=== PATIENT | female | born 1945 | race Caucasian/White ===

== ENCOUNTER 2016-12-03 13:15 | Emergency (ER) | payer MEDICARE, BC ==
[2016-12-03] MEDS ORDERED: Sodium Chloride 0.9% 1,000 ML IV ONE (13:30)
[2016-12-03] MEDS ORDERED: Aspirin 81 MG Tab.Chew PO ONE (13:51)
[2016-12-03 13:58] LABS: CHLORIDE,CL 94 mmol/L (101-111); SODIUM,NA 131 mmol/L (135-145)
--- NOTE | 2016-12-03 14:06 | EDM.PDOC ---
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 Patient does have a history of a thyroid disorder. She states over the past 3 weeks that she thought her thyroid may be a little bit out of "whack" although the symptoms she has been having over the past 3 weeks are not consistent to her hypothyroidism in the past. She had some blood work done and was found to be quite hyperglycemic in the 400s and was started on glyburide. He did not see her primary care provider they just started the medication after her labs were drawn. Over the past 3 weeks she has had epigastric pain pressure that is constant. This pain gets worse with physical activity nothing makes it better she does complain of increasing shortness of breath weakness malaise and fatigue. She just does not have the energy that she typically has in the past. She is more short of breath than she typically is. He denies any weakness dizziness lightheadedness. She has been diaphoretic intermittently over the past couple weeks as well. She denies any fever or chills. She denies any cough or congestion. She denies any abdominal pain other than her epigastric pain. She does complain of some nausea without vomiting. No hematuria dysuria or urinary frequency. No flank pain. Generalized Pain Score (Numeric/FACES): 2 - Related Data Allergies Allergy/AdvReac Type Severity Reaction Status Date / Time codeine Allergy Headache Verified 12/03/16 13:31 morphine Allergy Headache Verified 12/03/16 13:31 omeprazole Allergy Nausea Verified 12/03/16 13:31 phenobarbital Allergy Swelling Verified 12/03/16 13:31 Home Meds: Home Meds DULoxetine [Cymbalta] 60 mg PO DAILY 07/27/15 [History] Hydrocodone/Acetaminophen [Hydrocodone-Acetaminophen 5-325] 1 tab PO TID PRN [History] Levothyroxine Sodium [Synthroid] 1 tab PO DAILY 07/27/15 [History] Nortriptyline HCl [Nortriptyline HCl] 25 mg PO BEDTIME 07/27/15 [History] Probenecid [Probenecid] 500 mg PO BID 07/27/15 [History] Simvastatin [Simvastatin] 20 mg PO DAILY 07/27/15 [History] Valsartan [Diovan] 160 mg PO DAILY 07/27/15 [History] levETIRAcetam [Levetiracetam] 500 mg PO BID 07/27/15 [History] Lutein/Minerals/Vit A,C & E [Ocuvite] 1 tab PO DAILY 12/03/16 [History] glipiZIDE [Glipizide ER] 5 mg PO BID 12/03/16 [History] ED ROS GENERAL - Review of Systems Review Of Systems: ROS reveals no pertinent complaints other than HPI. ED EXAM, GENERAL - Physical Exam Exam: See Below Exam Limited By: No Limitations General Appearance: Alert, WD/WN, No Apparent Distress Eye Exam: Bilateral Eye: Normal Inspection Ears: Normal External Exam Nose: Normal Inspection, Normal Mucosa Throat/Mouth: Normal Inspection, Normal Lips, Normal Oropharynx Head: Atraumatic, Normocephalic Neck: Normal Inspection, Supple, Non-Tender, Full Range of Motion Respiratory/Chest: No Respiratory Distress, Lungs Clear, Normal Breath Sounds, No Accessory Muscle Use, Chest Non-Tender Cardiovascular: Normal Peripheral Pulses, Regular Rate, Rhythm, No Gallop, No JVD, No Murmur, No Rub Peripheral Pulses: 2+: Carotid (L), Carotid (R), Radial (L), Radial (R), Posterior Tibial (L), Posterior Tibial (R), Dorsalis Pedis (L), Dorsalis Pedis ( R) GI/Abdominal: Normal Bowel Sounds, Soft, Non-Tender, No Organomegaly, No Abnormal Bruit, No Mass (Female) Exam: Deferred Rectal (Female) Exam: Deferred Back Exam: Normal Inspection, Full Range of Motion. No: CVA Tenderness (L), CVA Tenderness (R) Extremities: Normal Inspection, Normal Range of Motion, Non-Tender, No Pedal Edema, Normal Capillary Refill. No: Mohamud's Sign, Leg Pain Neurological: Alert, Oriented, CN II-XII Intact, Normal Cognition Psychiatric: Normal Affect Skin Exam: No Rash, Cool, Diaphoretic, Pallor Lymphatic: No Adenopathy EKG INTERPRETATION EKG Date: 12/03/16 Time: 13:35 Rhythm: NSR Rate (Beats/Min): 84 [place]: Normal P-Wave: Present QRS: LBBB (Which is chronic for her. Although the morphology of the lateral QRS complex is quite different than her previous EKG from 2016.) ST-T: Normal QT: Normal Comparison: Change From Previous EKG EKG Interpretation Comments: Normal sinus rhythm without ST elevation or depression. Chronic left bundle branch block although has quite a bit a change of morphology laterally. Course - Vital Signs Last Recorded V/S: Last Vital Signs Temp 36.7 C 12/03/16 13:30 Pulse 88 12/03/16 13:30 Resp 20 12/03/16 13:30 BP 111/52 L 12/03/16 15:01 Pulse Ox 96 12/03/16 13:30 - Orders/Labs/Meds Orders: Active Orders 24 hr Category Date Time Status EKG 12 Lead [EKG Documentation Completion] [RC] URGENT Care 12/03/16 13:27 Active Labs: Laboratory Tests 12/03/16 12/03/16 12/03/16 Range/Units 13:25 13:25 13:25 WBC 5.6 (5.0-10.0) 10^3/uL RBC 4.14 L (4.2-5.4) 10^6/uL Hgb 14.6 (12.0-16.0) g/dL Hct 41.3 (37.0-47.0) % MCV 99.8 (80-100) fL MCH 35.3 H (27.0-34.0) pg MCHC 35.4 H (33.0-35.0) g/dL Plt Count 186 (150-450) 10^3/uL Neut % (Auto) 57.5 (42.2-75.2) % Lymph % (Auto) 27.4 (20.5-50.1) % [place] % (Auto) 12.6 H (2-8) % Eos % (Auto) 2.1 (1.0-3.0) % Baso % (Auto) 0.4 (0.0-1.0) % Sodium 131 L (135-145) mmol/L Potassium 4.5 (3.6-5.0) mmol/L Chloride 94 L (101-111) mmol/L Carbon Dioxide 26.0 (21.0-31.0) mmol/L Anion Gap 15.5 BUN 18 (7-18) mg/dL Creatinine 1.1 (0.6-1.3) mg/dL Est Cr Clr Drug Dosing TNP Estimated GFR (MDRD) 49 BUN/Creatinine Ratio 16.36 Glucose 467 H* (74-105) mg/dL POC Glucose (70-105) mg/dl Calcium 9.7 (8.4-10.2) mg/dl Total Bilirubin 0.8 (0.2-1.0) mg/dL AST 45 H (10-42) IU/L ALT 59 (10-60) IU/L Alkaline Phosphatase 49 (42-121) IU/L Creatine Kinase 132 (26-174) IU/L Creatine Kinase Index 1.6 (0-2.4) % CK-MB (CK-2) 2.10 (0.4-4.7) ng/mL Troponin I < 0.02 (0.00-0.02) ng/ml Total Protein 7.4 (6.7-8.2) g/dl Albumin 3.8 (3.2-5.5) g/dl Globulin 3.6 Albumin/Globulin Ratio 1.06 Urine Color (YELLOW) Urine Appearance (CLEAR) Urine pH (5.0-9.0) Ur Specific [place] (1.005-1.030) Urine Protein (NEGATIVE) Urine Glucose (UA) (NEGATIVE) Urine Ketones (NEGATIVE) Urine Occult Blood (NEGATIVE) Urine Nitrite (NEGATIVE) Urine Bilirubin (NEGATIVE) Urine Urobilinogen (0.2-1.0) mg/dL Ur Leukocyte Esterase (NEGATIVE) Urine RBC /HPF Urine WBC (0-5/HPF) /HPF Ur Epithelial Cells /HPF Urine Bacteria (0-FEW/HPF) /HPF 12/03/16 12/03/16 Range/Units 13:26 14:35 WBC (5.0-10.0) 10^3/uL RBC (4.2-5.4) 10^6/uL Hgb (12.0-16.0) g/dL Hct (37.0-47.0) % MCV (80-100) fL MCH (27.0-34.0) pg MCHC (33.0-35.0) g/dL Plt Count (150-450) 10^3/uL Neut % (Auto) (42.2-75.2) % Lymph % (Auto) (20.5-50.1) % [place] % (Auto) (2-8) % Eos % (Auto) (1.0-3.0) % Baso % (Auto) (0.0-1.0) % Sodium (135-145) mmol/L Potassium (3.6-5.0) mmol/L Chloride (101-111) mmol/L Carbon Dioxide (21.0-31.0) mmol/L Anion Gap BUN (7-18) mg/dL Creatinine (0.6-1.3) mg/dL Est Cr Clr Drug Dosing Estimated GFR (MDRD) BUN/Creatinine Ratio Glucose (74-105) mg/dL POC Glucose 433 H* (70-105) mg/dl Calcium (8.4-10.2) mg/dl Total Bilirubin (0.2-1.0) mg/dL AST (10-42) IU/L ALT (10-60) IU/L Alkaline Phosphatase (42-121) IU/L Creatine Kinase (26-174) IU/L Creatine Kinase Index (0-2.4) % CK-MB (CK-2) (0.4-4.7) ng/mL Troponin I (0.00-0.02) ng/ml Total Protein (6.7-8.2) g/dl Albumin (3.2-5.5) g/dl Globulin Albumin/Globulin Ratio Urine Color Yellow (YELLOW) Urine Appearance Slightly cloudy (CLEAR) Urine pH 6.0 (5.0-9.0) Ur Specific [place] <= 1.005 (1.005-1.030) Urine Protein Negative (NEGATIVE) Urine Glucose (UA) 500 H (NEGATIVE) Urine Ketones Negative (NEGATIVE) Urine Occult Blood Negative (NEGATIVE) Urine Nitrite Negative (NEGATIVE) Urine Bilirubin Negative (NEGATIVE) Urine Urobilinogen 0.2 (0.2-1.0) mg/dL Ur Leukocyte Esterase Small H (NEGATIVE) Urine RBC 0-5 /HPF Urine WBC 5-10 H (0-5/HPF) /HPF Ur Epithelial Cells Moderate H /HPF Urine Bacteria Few (0-FEW/HPF) /HPF Meds: Medications Discontinued Medications Generic Name Dose Route Start Last Admin Trade Name Freq PRN Reason Stop Dose Admin Aspirin 324 mg 12/03/16 13:51 12/03/16 14:45 Aspirin PO 12/03/16 13:52 324 mg ONETIME ONE Administration Sodium Chloride 1,000 mls @ 999 mls/hr 12/03/16 13:30 12/03/16 13:30 Normal Saline IV 12/03/16 14:30 999 mls/hr .BOLUS ONE Administration Nitroglycerin 0.4 mg 12/03/16 14:44 12/03/16 14:47 Nitrostat SL 12/03/16 14:45 0.4 mg ONETIME ONE Administration Nitroglycerin 0.4 mg 12/03/16 14:58 12/03/16 15:01 Nitrostat SL 12/03/16 14:59 0.4 mg ONETIME ONE Administration - Radiology Interpretation Free Text/Narrative:: Chest x-ray per radiology. No evidence for acute abnormality in the chest. Postsurgical changes as noted. Cervical fusion. - Re-Assessments/Exams Free Text/Narrative Re-Assessment/Exam: 12/03/16 15:42 The patient's blood sugar is quite elevated although there is no presence of ketosis in her urine. She is more concerned about her blood pressure although I am more concerned of her 3 weeks of malaise fatigue shortness of breath epigastric pain chest pressure. Although her troponin is normal as well as her CK-MB I still have concerns for cardiac disease. She was given aspirin upon arrival. Chest x-ray is unremarkable. After 2 sublingual nitros the patient's epigastric chest pain was completely resolved. Her skin is pink warm and dry. She is without complaints at this time. She denies any shortness of breath epigastric pain or chest pain following to nitroglycerin administration. I have concerns for unstable angina at this time. I did talk with out hospitalist who is addiction treatment counselor DR. Gutierrez primarily because he is her primary care provider. He feels that this patient is best served to go to a tertiary care center with cardiology in angiograph ability. I did discuss this with the patient and she is agreeable. Departure - Departure Time of Disposition: 16:00 Disposition: DC/Tfer to [facility] 02 Clinical Impression: Angina at rest, Hyperglycemia without ketosis - Discharge Information Forms: ED Department Discharge ED Communication - Discussed Case With (1) Discussed Case With (1): Admitting Provider (DR. Mejia at [facility] in [place]. HPI ER COURSE and findings and concerns for Angina unstable was relayed to him verbally over the phone. He accepted the patient in transfer and had no new orders.) - My Orders Last 24 Hours: My Active Orders 12/03/16 13:27 EKG 12 Lead [EKG Documentation Completion] [RC] URGENT - Assessment/Plan Last 24 Hours: My Active Orders 12/03/16 13:27 EKG 12 Lead [EKG Documentation Completion] [RC] URGENT Assessment:: CP/Angina resolved after nitro, negative Enzymes although some subtle changes in morphology of EKG. No ST elevation or depression. Hyperglycemia without evidence of ketosis. Plan: Ground ambulance to [facility] under the care of Dr. Mejia for further care and evaluation for CP angina symptoms.
[2016-12-03] MEDS ORDERED: Nitroglycerin 0.4 MG Tab.SL SL ONE ×2 (14:44→14:58)
[2016-12-03 15:01] VITALS: BP 111/52
--- NOTE | 2017-01-09 09:32 | EKG ---
12/03/2016 - RUDY BORGES - EKG shows sinus rhythm with a rate of 84, normal TX interval, normal axis. There is left bundle-branch block. [facility] /[id number]
== END 2016-12-03 16:32 ==
LOC: DL.ED 13:15
DX: R73.9 Hyperglycemia, unspecified (principal); I20.9 Angina pectoris, unspecified; Z88.5 Allergy status to narcotic agent; Z88.8 Allergy status to other drugs, medicaments and biological substances; Z79.899 Other long term (current) drug therapy
CPT/HCPCS: 36415; 71020; 80053; 81001; 82550; 82553; 82962; 84484; 85025; 93005; 93010; 96360; 99284; 99285; A9270; J7030

== ENCOUNTER 2020-02-28 15:19 | Inpatient (IN) | payer MEDICARE, BC ==
[~2020-02-28 15:19] MED LIST: Ondansetron 4 MG/2 ML SDV IV ONE; Sodium Chloride 0.9% 1,000 ML IV ONE; fentaNYL 100 MCG/2 ML SDV IVPUSH ONE
--- NOTE | 2020-02-28 15:27 | EDM.PDOC ---
ED HPI GENERAL MEDICAL PROBLEM - General Chief Complaint: Abdominal Pain Stated Complaint: ambulance Time Seen by Provider: 02/28/20 15:19 Source of Information: Reports: Patient, EMS, EMS Notes Reviewed, RN, RN Notes Reviewed History Limitations: Reports: No Limitations - History of Present Illness INITIAL COMMENTS - FREE TEXT/NARRATIVE: Patient presents to ER per [facility] with complaint of left flank pain, left lower quadrant pain, nausea and vomiting. Patient states this began about 230 this morning, progressively getting worse. Patient admits to having some difficulties with urination today. Patient states her last bowel movement was 3 days ago. Denies fever chills. Denies chest pains or shortness of breath, although deep inspiration does cause pain on the left side. Onset: Today Left Abdomen Pain Score (Numeric/FACES): 7 - Related Data Allergies Allergy/AdvReac Type Severity Reaction Status Date / Time codeine Allergy Headache Verified 02/28/20 15:27 morphine Allergy Headache Verified 02/28/20 15:27 omeprazole Allergy Nausea Verified 02/28/20 15:27 phenobarbital Allergy Swelling Verified 02/28/20 15:27 Home Meds: Home Meds DULoxetine [Cymbalta] 60 mg PO DAILY 07/27/15 [History] Hydrocodone/Acetaminophen [Hydrocodone-Acetaminophen 5-325] 1 tab PO TID PRN 07/27/15 [History] Nortriptyline HCl 25 mg PO BEDTIME 07/27/15 [History] Simvastatin 20 mg PO BEDTIME 07/27/15 [History] levETIRAcetam [Levetiracetam] 500 mg PO BID 07/27/15 [History] Lutein/Minerals/Vit A,C & E [Ocuvite] 2 tab PO DAILY 12/03/16 [History] Aspirin [Adult Low Dose Aspirin EC] 325 mg PO DAILY 12/19/16 [History] Metoprolol Tartrate 25 mg PO BID 12/19/16 [History] Nitroglycerin [Nitrostat] 0.4 mg SL .Q5MIN 12/19/16 [History] Levothyroxine [Synthroid] 100 mcg PO DAILY 04/16/18 [History] glipiZIDE [Glucotrol] 10 mg PO BID 04/16/18 [History] Acetaminophen [Tylenol] 650 mg PO Q4H PRN tablet 04/18/18 [Rx] Insulin Glarg,Human.Rec.Analog [Lantus] 48 units SQ BEDTIME 02/28/20 [History] Past Medical History HEENT History: Reports: Hard of Hearing, Impaired Vision, Macular Degeneration Other HEENT History: hard of hearing in the left ear, wears glasses Cardiovascular History: Reports: High Cholesterol, Hypertension, [place] Other Cardiovascular History: was told had a heart attack before, not sure when Respiratory History: Reports: None Gastrointestinal History: Reports: None Genitourinary History: Reports: None 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 Musculoskeletal History: Reports: Back Pain, Chronic, Fibromyalgia, Gout, Osteoarthritis, Other (See Below) Other Musculoskeletal History: Lumbago, degeneration of lumbar or lumbosacral intervertebral disc, cervicalgia, degeneration of cervical intervertebral Neurological History: Reports: Neuropathy, Peripheral, Seizure, Other (See Below) Other Neuro History: Epilepsy Psychiatric History: Reports: Depression Endocrine/Metabolic History: Reports: Diabetes, Type II, Hypothyroidism, Obesity/BMI 30+ Hematologic History: Reports: None Immunologic History: Reports: None Oncologic (Cancer) History: Reports: None Dermatologic History: Reports: None - Infectious Disease History Infectious Disease History: Reports: Chicken Pox, Measles, Mumps - Past Surgical History HEENT Surgical History: Reports: Cataract Surgery, Tonsillectomy GI Surgical History: Reports: Appendectomy, Colonoscopy Female Surgical History: Reports: Breast Biopsy Musculoskeletal Surgical History: Reports: Other (See Below) Other Musculoskeletal Surgeries/Procedures:: right ankle surgery with postsurgical ankle wound, spinal cord stimulator Social & Family History - Family History Family Medical History: Noncontributory - Caffeine Use Caffeine Use: Reports: None - Living Situation & Occupation Living situation: Reports: , with Spouse Occupation: Retired ED ROS GENERAL - Review of Systems Review Of Systems: Comprehensive ROS is negative, except as noted in HPI. ED EXAM, GI/ABD - Physical Exam Exam: See Below Exam Limited By: No Limitations General Appearance: Alert, WD/WN, Moderate Distress Eyes: Right: Erythema (ruptured capillary), Left: Normal Appearance, Bilateral: EOMI Ears: Normal External Exam, Hearing Grossly Normal Nose: Normal Inspection Throat/Mouth: Normal Inspection, Normal Voice, No Airway Compromise Head: Atraumatic, Normocephalic Neck: Normal Inspection, Supple, Non-Tender, Full Range of Motion Respiratory/Chest: No Respiratory Distress, No Accessory Muscle Use, Chest Non- Tender, Decreased Breath Sounds Cardiovascular: Normal Peripheral Pulses, Regular Rate, Rhythm, No Edema, No Gallop, No JVD, No Murmur, No Rub GI/Abdominal Exam: Soft, No Organomegaly, No Distention, No Abnormal Bruit, No Mass, Pelvis Stable, Tender (Left lower quadrant, left upper quad quadrant, left flank), Abnormal Bowel Sounds (Hypoactive) (Female) Exam: Deferred Rectal (Female) Exam: Deferred Back Exam: Normal Inspection, CVA Tenderness (L), Decreased Range of Motion Extremities: Normal Inspection, Normal Range of Motion, Non-Tender, No Pedal Edema, Normal Capillary Refill Neurological: Alert, Oriented, CN II-XII Intact, Normal Cognition, Normal Reflexes, No Motor/Sensory Deficits Psychiatric: Anxious Skin Exam: Warm, Dry, Intact, Normal Color, No Rash Lymphatic: No Adenopathy Course - Vital Signs Last Recorded V/S: Last Vital Signs Temp 97.1 F 02/28/20 15:23 Pulse 88 02/28/20 15:23 Resp 20 02/28/20 15:23 BP 177/91 H 02/28/20 15:23 Pulse Ox 94 L 02/28/20 15:23 - Orders/Labs/Meds Orders: Active Orders 24 hr Category Date Time Status Admission Diagnosis [ADT] Stat ADT 02/28/20 18:14 Ordered Patient Status [ADT] Routine ADT 02/28/20 18:14 Active CULTURE BLOOD [BC] Stat Lab 02/28/20 15:05 Results CULTURE BLOOD [BC] Stat Lab 02/28/20 15:07 Results CULTURE URINE [RM] Urgent Lab 02/28/20 16:58 Received REFLEX LACTIC ACID YES OR NO [CHEM] Routine Lab 02/28/20 15:46 Received Sodium Chloride 0.9% [Normal Saline] 1,000 ml Med 02/28/20 15:10 Active IV .BOLUS Blood Culture x2 Reflex Set [OM.PC] Stat Oth 02/28/20 15:10 Ordered Medication Orders Sodium Chloride (Normal Saline) 1,000 mls @ 250 mls/hr IV .BOLUS ONE Stop: 02/28/20 19:09 Last Admin: 02/28/20 15:16 Dose: 250 mls/hr Documented by: PREM Labs: Laboratory Tests 02/28/20 02/28/20 02/28/20 Range/Units 15:05 15:07 15:07 WBC 10.9 H (5.0-10.0) 10^3/uL RBC 4.76 (4.2-5.4) 10^6/uL Hgb 16.7 H D (12.0-16.0) g/dL Hct 48.7 H (37.0-47.0) % MCV 102.3 H (80-100) fL MCH 35.1 H (27.0-34.0) pg MCHC 34.3 (33.0-35.0) g/dL Plt Count 209 (150-450) 10^3/uL Neut % (Auto) 78.1 H (42.2-75.2) % Lymph % (Auto) 11.7 L (20.5-50.1) % [place] % (Auto) 9.8 H (2-8) % Eos % (Auto) 0.2 L (1.0-3.0) % Baso % (Auto) 0.2 (0.0-1.0) % PT (9.0-12.0) SEC INR (0.9-1.2) Sodium 137 (136-145) mmol/L Potassium 5.1 (3.5-5.1) mmol/L Chloride 100 (98-107) mmol/L Carbon Dioxide 31 (21-32) mmol/L Anion Gap 11.1 (7-13) mEq/L BUN 13 (7-18) mg/dL Creatinine 1.24 H (0.55-1.02) mg/dL Est Cr Clr Drug Dosing 38.39 mL/min Estimated GFR (MDRD) 43 BUN/Creatinine Ratio 10.5 (No establ ref range) Glucose 202 H (74-99) mg/dL Lactic Acid 2.6 H* (0.4-2.0) mmol/L Calcium 8.9 (8.5-10.1) mg/dL Total Bilirubin 0.8 (0.2-1.0) mg/dL AST 49 H (15-37) U/L ALT 60 H (14-59) U/L Alkaline Phosphatase 64 (46-116) U/L Troponin I < 0.017 (0.000-0.056) ng/mL Total Protein 7.7 (6.4-8.2) g/dL Albumin 3.5 (3.4-5.0) g/dL Globulin 4.2 Albumin/Globulin Ratio 0.8 Urine Color (YELLOW) Urine Appearance (CLEAR) Urine pH (5.0-9.0) Ur Specific [place] (1.005-1.030) Urine Protein (NEGATIVE) Urine Glucose (UA) (NEGATIVE) Urine Ketones (NEGATIVE) Urine Occult Blood (NEGATIVE) Urine Nitrite (NEGATIVE) Urine Bilirubin (NEGATIVE) Urine Urobilinogen (0.2-1.0) mg/dL Ur Leukocyte Esterase (NEGATIVE) Urine RBC /HPF Urine WBC (0-5/HPF) /HPF Ur Epithelial Cells (NOT SEEN) /HPF Amorphous Sediment (NOT SEEN) /HPF Urine Bacteria (0-FEW/HPF) /HPF Urine Mucus (NOT SEEN) /LPF 02/28/20 02/28/20 Range/Units 15:07 16:58 WBC (5.0-10.0) 10^3/uL RBC (4.2-5.4) 10^6/uL Hgb (12.0-16.0) g/dL Hct (37.0-47.0) % MCV (80-100) fL MCH (27.0-34.0) pg MCHC (33.0-35.0) g/dL Plt Count (150-450) 10^3/uL Neut % (Auto) (42.2-75.2) % Lymph % (Auto) (20.5-50.1) % [place] % (Auto) (2-8) % Eos % (Auto) (1.0-3.0) % Baso % (Auto) (0.0-1.0) % PT 10.6 (9.0-12.0) SEC INR 1.1 (0.9-1.2) Sodium (136-145) mmol/L Potassium (3.5-5.1) mmol/L Chloride (98-107) mmol/L Carbon Dioxide (21-32) mmol/L Anion Gap (7-13) mEq/L BUN (7-18) mg/dL Creatinine (0.55-1.02) mg/dL Est Cr Clr Drug Dosing mL/min Estimated GFR (MDRD) BUN/Creatinine Ratio (No establ ref range) Glucose (74-99) mg/dL Lactic Acid (0.4-2.0) mmol/L Calcium (8.5-10.1) mg/dL Total Bilirubin (0.2-1.0) mg/dL AST (15-37) U/L ALT (14-59) U/L Alkaline Phosphatase (46-116) U/L Troponin I (0.000-0.056) ng/mL Total Protein (6.4-8.2) g/dL Albumin (3.4-5.0) g/dL Globulin Albumin/Globulin Ratio Urine Color Dark yellow (YELLOW) Urine Appearance Turbid (CLEAR) Urine pH 5.5 (5.0-9.0) Ur Specific [place] 1.015 (1.005-1.030) Urine Protein 30 H (NEGATIVE) Urine Glucose (UA) Negative (NEGATIVE) Urine Ketones Negative (NEGATIVE) Urine Occult Blood Large H (NEGATIVE) Urine Nitrite Negative (NEGATIVE) Urine Bilirubin Negative (NEGATIVE) Urine Urobilinogen 1.0 (0.2-1.0) mg/dL Ur Leukocyte Esterase Negative (NEGATIVE) Urine RBC >100 H /HPF Urine WBC 0-5 (0-5/HPF) /HPF Ur Epithelial Cells Few (NOT SEEN) /HPF Amorphous Sediment Few (NOT SEEN) /HPF Urine Bacteria Rare (0-FEW/HPF) /HPF Urine Mucus Few H (NOT SEEN) /LPF Meds: Medications Generic Name Dose Route Start Last Admin Trade Name Freq PRN Reason Stop Dose Admin Sodium Chloride 1,000 mls @ 250 mls/hr 02/28/20 15:10 02/28/20 15:16 Normal Saline IV 02/28/20 19:09 250 mls/hr .BOLUS ONE Administration Discontinued Medications Generic Name Dose Route Start Last Admin Trade Name Freq PRN Reason Stop Dose Admin Fentanyl 50 mcg 02/28/20 15:10 02/28/20 15:17 Sublimaze IVPUSH 02/28/20 15:11 50 mcg ONETIME ONE Administration Fentanyl 50 mcg 02/28/20 16:49 02/28/20 16:58 Sublimaze IVPUSH 02/28/20 16:50 50 mcg ONETIME ONE Administration Iopamidol 100 ml 02/28/20 15:51 02/28/20 16:28 Isovue-300 (61%) IVPUSH 09/18/20 15:52 100 ml ONETIME ONE Administration Ondansetron HCl 4 mg 02/28/20 15:10 02/28/20 15:17 Zofran IV 02/28/20 15:11 4 mg ONETIME ONE Administration Ondansetron HCl 4 mg 02/28/20 17:01 02/28/20 17:05 Zofran IV 02/28/20 17:02 4 mg ONETIME ONE Administration - Re-Assessments/Exams Free Text/Narrative Re-Assessment/Exam: 02/28/20 18:50 Discussed patient case with Dr. Gutierrez who agreed to accept the patient for inpatient admission, with consultation to Urology. Departure - Departure Time of Disposition: 18:22 Disposition: Admitted As Inpatient 68 Condition: Fair Clinical Impression: Left flank pain Hematuria Qualifiers: Hematuria type: unspecified type Qualified Code(s): R31.9 - Hematuria, unspecified - Discharge Information *PRESCRIPTION DRUG MONITORING PROGRAM REVIEWED*: No *COPY OF PRESCRIPTION DRUG MONITORING REPORT IN PATIENT YEISON: No Forms: ED Department Discharge Sepsis Event Note (ED) - Evaluation Sepsis Screening Result: No Definite Risk - Focused Exam Vital Signs: Vital Signs Temp Pulse Resp BP Pulse Ox 02/28/20 15:23 97.1 F 88 20 177/91 H 94 L - My Orders Last 24 Hours: My Active Orders 02/28/20 15:05 CULTURE BLOOD [BC] Stat 02/28/20 15:07 CULTURE BLOOD [BC] Stat 02/28/20 15:10 Sodium Chloride 0.9% [Normal Saline] 1,000 ml IV .BOLUS Blood Culture x2 Reflex Set [OM.PC] Stat 02/28/20 15:46 REFLEX LACTIC ACID YES OR NO [CHEM] Routine 02/28/20 16:58 CULTURE URINE [RM] Urgent 02/28/20 18:14 Admission Diagnosis [ADT] Stat Patient Status [ADT] Routine - Assessment/Plan Last 24 Hours: My Active Orders 02/28/20 15:05 CULTURE BLOOD [BC] Stat 02/28/20 15:07 CULTURE BLOOD [BC] Stat 02/28/20 15:10 Sodium Chloride 0.9% [Normal Saline] 1,000 ml IV .BOLUS Blood Culture x2 Reflex Set [OM.PC] Stat 02/28/20 15:46 REFLEX LACTIC ACID YES OR NO [CHEM] Routine 02/28/20 16:58 CULTURE URINE [RM] Urgent 02/28/20 18:14 Admission Diagnosis [ADT] Stat Patient Status [ADT] Routine
[2020-02-28 15:43] LABS: ANION GAP 11.1 mEq/L (7-13); CHLORIDE,CL 100 mmol/L (98-107); SODIUM,NA 137 mmol/L (136-145)
[2020-02-28] MEDS: Iopamidol 612 MG/ML 100 ML Bottle IVPUSH ONE ×2 (16:04→16:28)
--- NOTE | 2020-02-28 16:45 | CT ---
EXAMINATION: Abdomen Pelvis w Cont SEX: Female AGE: 74 years Clinical history: 74-year-old hypertensive, diabetic female complaining of left flank pain. Previous "hysterectomy" and appendectomy. Scan technique: Volume acquisition of data from the abdomen and pelvis obtained after during intravenous infusion 100 cc nonionic Isovue contrast 3 cc/s via injector while patient was lying supine on the Siemens multislice scanner [place], [place]. All data archived in the PACS system for storage, reformatting axial/sagittal/coronal planes and study. Interpretation: 1. TENS unit entering the spinal canal at the T11-12 level (advancing in a cephalad fashion). 2. Several prominent CYSTS left adnexa presumably in the left ovary. Uterus and right ovary not identified. 3. Fatty liver and several areas of decreased attenuation in both the left and right lobes that warrants further evaluation i.e. recommend elective follow-up MRI exam this nonemergent finding. No ductal dilatation. 4. Gallbladder, stomach, spleen, pancreas and adrenal glands unremarkable. No ventral wall/inguinal hernia. 5. Small cortical cysts both kidneys (largest upper pole right measures 3.0 cm). No sign of nephrolithiasis or obstructive uropathy. Symmetrically distended normal appearing unenhanced urinary bladder. 6. No abdominal or pelvic mass lesion, inflammatory "dirty" peritoneal fat, diverticulitis, signs of mechanical bowel obstruction, ascites or free intraperitoneal air (normal terminal ileum). 7. Calcifications normal caliber aortoiliac vessels. Chronic lower lumbar L5-S1 disc disease. Osteopenia. CONCLUSION: Renal and left ovarian cysts. TENS unit. Usual signs of senescence. Lumbar disc disease. Note: Suspicious appearance (metastases? Hemangiomas?) of the generally fatty liver. (Elective MRI recommended). No sign of acute peritonitis.
[2020-02-28] MEDS ORDERED: fentaNYL 100 MCG/2 ML SDV IVPUSH ONE (16:49)
[2020-02-28] MEDS ORDERED: Ondansetron 4 MG/2 ML SDV IV ONE (17:01)
--- NOTE | 2020-02-28 17:40 | CR ---
PROCEDURE INFORMATION: Exam: XR Chest, 1 View Exam date and time: 02/28/2020 5:26 PM Age: 74 years old Clinical indication: Shortness of breath; Additional info: Left flank pain, vomiting, TECHNIQUE: Imaging protocol: XR of the chest Views: 1 view. COMPARISON: CR Chest 2V 12/03/2016 1:56 PM FINDINGS: Lungs: The lungs are normal. Pleural space: There are no pleural effusions present. Heart/Mediastinum: The heart is not enlarged. The pulmonary arteries are not enlarged. Bones/joints: Unremarkable IMPRESSION: No acute abnormality.
[2020-02-28] MEDS ORDERED: Acetaminophen 325 MG Tab PO PRN (19:01)
[2020-02-28] MEDS ORDERED: Ondansetron 4 MG Tab.DIS PO PRN (19:13)
[2020-02-28] MEDS ORDERED: Ondansetron 4 MG/2 ML SDV IVPUSH PRN (19:13)
[2020-02-28] MEDS ORDERED: Nitroglycerin 0.4 MG Tab.SL SL PRN (19:15)
[2020-02-28] MEDS ORDERED: Bisacodyl 10 MG Supp RECTAL ONE (19:18)
--- NOTE | 2020-02-28 19:33 | HP ---
CHIEF COMPLAINT: Left flank pain. HISTORY OF PRESENT ILLNESS: The patient is a 74-year-old lady who was admitted through the emergency room because the patient was complaining of left flank pain that started a couple of days ago and today it has worsened and now accompanied by nausea and vomiting. She denies any fever, any chills. Denies any dysuria, hematuria, diarrhea, cough, chest pain, shortness of breath, nor any other associated symptoms. She was brought in by ambulance to the emergency room, and in the emergency room, she was given couple of doses of fentanyl and Zofran, which slightly relieved the symptoms. She had a CAT scan of the abdomen and pelvis and this showed some renal and left ovarian cysts on TENS unit and usual signs of disk disease and suspicious appearance ?metastasis, ?hemangioma of the fatty liver. Otherwise, no other abnormality noted. There are no signs of diverticulitis or any signs of nephrolithiasis or obstructive uropathy. A chest x-ray was done, which basically came back unremarkable. Lab workup was remarkable for a lactic acid of 2.6 and urinalysis showing large occult blood with more than 100 per high-power field RBC. Otherwise, unremarkable. Because of the intractable left flank pain, the patient was then admitted for further evaluation and management. 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 SOCIAL HISTORY: The patient is . She is a nonsmoker, nonalcohol drinker. FAMILY HISTORY: Noncontributory. REVIEW OF SYSTEMS: As in HPI. The rest of the review of systems is negative. HOME MEDICATIONS: Cymbalta, hydrocodone, acetaminophen, nortriptyline, simvastatin, Keppra, Ocuvite, aspirin, metoprolol, sublingual nitro, levothyroxine, glipizide, Tylenol, and Lantus. ALLERGIES: Codeine, morphine, omeprazole, phenobarbital. PHYSICAL EXAMINATION: General: The patient is alert and oriented, in moderate distress. Vital Signs: Blood pressure is 177/91, pulse of 88, respirations of 20, temperature of 97.1, pulse oximeter is 94% on room air. SHEENT: Remarkable for subconjunctival hemorrhage on the right eye. There are pink palpebral conjunctivae. Sclerae anicteric. NECK: No JVD. No lymphadenopathy. HEART: Regular rate and rhythm. No gallops. No rubs. LUNGS: Equal bilaterally. No crackles. No wheezing. ABDOMEN: Obese, soft. There is [id number] direct tenderness on the left lumbar area. No rebound. Bowel sounds positive. There is CVA tenderness with percussion. EXTREMITIES: Has trace bilateral pedal edema. No calf tenderness. No signs of cellulitis. LABORATORY DATA: WBC is 10.9, hemoglobin is 16.7, hematocrit is 48.7, platelet is 209. ProTime 10.6 and INR of 1.1. Comp panel, creatinine is 1.24, glucose of 202. Lactic acid is 2.6. AST is 49, ALT of 60. ADMITTING DIAGNOSES: 1. Intractable left flank pain ?renal colic. 2. Hematuria. 3. Suspicious hypodensity on the liver ?metastasis versus hemangioma and this will be followed up with an MRI as an outpatient. 4. Fibromyalgia. 5. Type 2 diabetes mellitus. 6. History of seizures. 7. Hypothyroidism. TREATMENT PLAN: The patient is going to be admitted to acute care. She will be empirically started on IV fluids and she will be on a sliding scale insulin. She will be on deep vein thrombosis prophylaxis and she will be given pain medication for pain management. The rest of the management as necessary and the patient is a full code. [facility] /[id number]
[2020-02-28] MEDS: Levofloxacin/Dextrose 5%-Water 250 MG in Premix Bag 1 BAG IV SCH (19:52)
[2020-02-28] MEDS: Nortriptyline 25 MG Cap PO SCH (19:59)
[2020-02-28] MEDS: Metoprolol Tartrate 25 MG Tab PO SCH (19:59)
[2020-02-28] MEDS: levETIRAcetam 500 MG Tab PO SCH (19:59)
[2020-02-28] MEDS: Docusate Sodium 100 MG Cap PO SCH (19:59)
[2020-02-28] MEDS: Sodium Chloride 0.9% 1,000 ML IV SCH (21:35)
[2020-02-29] MEDS: Sodium Chloride 0.9% 1,000 ML IV SCH ×3 (05:36→22:31)
[2020-02-29 06:50] LABS: ANION GAP 9.3 mEq/L (7-13)
[2020-02-29] MEDS ORDERED: Aspirin 81 MG Tab.EC PO SCH (09:00)
--- NOTE | 2020-02-29 09:33 | PN ---
DATE: 02/29/2020 SUBJECTIVE: The patient this morning is feeling a little bit better with regard to her left flank pain and she denies any fever, chills, chest pain, shortness of breath, nor any other complaints. LABORATORY DATA: Lab workup this morning, CBC; WBC is 8.3, hemoglobin is 14.6, hematocrit is 42.4, platelet is 190. Chem-6; creatinine is 1.1, glucose is 109. The rest of the panel unremarkable. Followup lactic acid is 1.1. OBJECTIVE: Vital Signs: Blood pressure is 146/64, pulse of 91, respirations of 18, temperature of 97.8, saturation is 91% on room air. Heart: Regular rate and rhythm. Normal S1 and S2. No gallops. No rubs. Lungs: Equal bilaterally. No crackles, no wheezing. Abdomen: Obese, soft. There is still mild direct tenderness on the left lumbar area with mild CVA tenderness (but improvement). Extremities: Negative for any significant pedal edema. No calf tenderness. MEDICATIONS: Reviewed. PLAN: We will continue with her present management and continue with her IV antibiotics (Levaquin) and blood culture as well as urine culture are still pending. I am also going to order an ultrasound of the liver because of the findings on the CAT scan of the abdomen and the patient is not a good candidate for MRI because of some hardware in her body. [facility] /[id number]
[2020-02-29] MEDS: Tamsulosin 0.4 MG Cap.ER PO SCH ×2 (09:40→18:41)
[2020-02-29] MEDS: DULoxetine 30 MG Cap PO SCH (09:40)
[2020-02-29] MEDS: Docusate Sodium 100 MG Cap PO SCH ×2 (09:40→22:13)
[2020-02-29] MEDS: Insulin Lispro 100 Units/ML 3 ML Vial SUBCUT SCH ×3 (09:40→18:33)
[2020-02-29] MEDS: Lutein/Minerals/Vit A,C & E Tab PO SCH (09:41)
[2020-02-29] MEDS: levETIRAcetam 500 MG Tab PO SCH ×2 (09:42→22:14)
[2020-02-29] MEDS: Metoprolol Tartrate 25 MG Tab PO SCH ×2 (09:42→22:14)
[2020-02-29] MEDS: Levothyroxine 100 MCG Tab PO SCH (09:43)
[2020-02-29] MEDS: Enoxaparin 40 MG/0.4 ML Syringe SUBCUT SCH (09:43)
[2020-02-29] MEDS: Acetaminophen/HYDROcodone 325-5 MG Tab PO PRN (19:56)
[2020-02-29] MEDS: fentaNYL 100 MCG/2 ML SDV IVPUSH PRN (20:03)
[2020-02-29] MEDS: Levofloxacin/Dextrose 5%-Water 250 MG in Premix Bag 1 BAG IV SCH (20:07)
[2020-02-29] MEDS: Nortriptyline 25 MG Cap PO SCH (22:13)
[2020-02-29] MEDS: Aspirin 81 MG Tab.Chew PO SCH (22:13)
[2020-03-01] MEDS: Sodium Chloride 0.9% 1,000 ML IV SCH (06:37)
[2020-03-01] MEDS ORDERED: Magnesium Citrate Solution 296 ML Bottle PO ONE (09:08)
[2020-03-01] MEDS: Acetaminophen/HYDROcodone 325-5 MG Tab PO PRN ×3 (09:11→21:17)
[2020-03-01] MEDS: Docusate Sodium 100 MG Cap PO SCH ×3 (09:12→21:12)
[2020-03-01] MEDS: levETIRAcetam 500 MG Tab PO SCH ×3 (09:12→21:13)
[2020-03-01] MEDS: Enoxaparin 40 MG/0.4 ML Syringe SUBCUT SCH (09:12)
[2020-03-01] MEDS: Levothyroxine 100 MCG Tab PO SCH (09:13)
[2020-03-01] MEDS: Lutein/Minerals/Vit A,C & E Tab PO SCH (09:13)
[2020-03-01] MEDS: Metoprolol Tartrate 25 MG Tab PO SCH ×3 (09:13→21:13)
[2020-03-01] MEDS: DULoxetine 30 MG Cap PO SCH (09:13)
[2020-03-01] MEDS: Insulin Lispro 100 Units/ML 3 ML Vial SUBCUT SCH ×3 (09:55→18:20)
[2020-03-01] MEDS: Tamsulosin 0.4 MG Cap.ER PO SCH (10:28)
--- NOTE | 2020-03-01 11:07 | PN ---
DATE: 03/01/2020 SUBJECTIVE: The patient is still complaining of some left flank pain, but much better when compared to admission. Appetite has been good and the patient denies any chest pain or shortness of breath, but she is still complaining of her fibromyalgia, aches, and pains. Otherwise, no other complaints. Lab workup this morning, urinalysis still remarkable for urine rbc of 30 to 40, but better when compared to admission. OBJECTIVE: Vital Signs: Blood pressure is 126/60, pulse of 79, respirations of 18, temperature of 98, and saturation is 91% on room air. Heart: Regular rate and rhythm. Normal S1 and S2. No gallops. No rubs. Lungs: Equal bilaterally. No crackles, no wheezing. Abdomen: Obese, soft. There is still mild direct tenderness on the left lumbar area and also still positive for CVA tenderness when percussion on the left flank area. Extremities: Negative for any significant pedal edema. No calf tenderness. MEDICATIONS: Reviewed. PLAN: We will continue with her present management. I am going to discontinue her IV fluids as the patient has been eating well. I am also going to discontinue her Flomax. Otherwise, continue with the rest of her management. [facility] /[id number]
[2020-03-01] MEDS: Levofloxacin/Dextrose 5%-Water 250 MG in Premix Bag 1 BAG IV SCH (19:44)
[2020-03-01] MEDS: Aspirin 81 MG Tab.Chew PO SCH ×2 (19:45→21:12)
[2020-03-01] MEDS: Nortriptyline 25 MG Cap PO SCH ×2 (19:47→21:13)
[2020-03-02] MEDS: Acetaminophen/HYDROcodone 325-5 MG Tab PO PRN ×2 (07:41→14:58)
[2020-03-02] MEDS: Insulin Lispro 100 Units/ML 3 ML Vial SUBCUT SCH ×3 (07:54→17:41)
[2020-03-02] MEDS: Lutein/Minerals/Vit A,C & E Tab PO SCH (09:52)
[2020-03-02] MEDS: Metoprolol Tartrate 25 MG Tab PO SCH ×2 (09:52→21:59)
[2020-03-02] MEDS: Docusate Sodium 100 MG Cap PO SCH ×2 (09:52→21:59)
[2020-03-02] MEDS: levETIRAcetam 500 MG Tab PO SCH ×2 (09:52→21:59)
[2020-03-02] MEDS: Enoxaparin 40 MG/0.4 ML Syringe SUBCUT SCH (09:53)
[2020-03-02] MEDS: DULoxetine 30 MG Cap PO SCH (09:56)
--- NOTE | 2020-03-02 10:10 | PN ---
DATE: 03/02/2020 SUBJECTIVE: The patient is still complaining of some back spasm, possibly from her fibromyalgia, and she is still complaining of left lung pain, but she denies any fever, chills, or chest pain or any other complaints, and blood glucose this morning is 109. OBJECTIVE: Vital Signs: Blood pressure is 129/49, pulse of 80, respiratory rate 16, temperature of 97.9, and saturation is 96% on room air. Heart: Regular rate and rhythm. Normal S1 and S2. No gallops. No rubs. Lungs: Equal bilaterally. No crackles. No wheezing. Back: Remarkable for trigger points on the scapular area bilaterally. Abdomen: Obese. Soft. There is still some mild direct tenderness on the left lumbar area, and also, there is still some left CVA tenderness with percussion. Extremities: Negative for any significant pedal edema. No calf tenderness. MEDICATIONS: Reviewed. PLAN: We will continue with her IV antibiotics and the rest of her management. She is also scheduled for an ultrasound of her liver today because of the densities noted on the CAT scan of the abdomen. [facility] /[id number]
--- NOTE | 2020-03-02 12:33 | US ---
EXAMINATION: Abdomen Ltd SEX: Female AGE: 74 years CLINICAL HISTORY: 74 year-old 255 pound female with "suspicious appearance generally fatty liver" reported on CT exam 28 February 2020. Serum AST 49; ALT 65. Interpretation: Homogeneously echodense (fatty) liver. No discrete intrahepatic cystic or solid mass lesion identified sonographically. ("Soft" finding on CT exam but suggest if further evaluation desired it may require unenhanced hepatic MRI to most optimally evaluate liver) Normal gallbladder. No sign of mucosal wall inflammation, polyps or dependent intraluminal echogenic "shadowing" gallstones. No ascites.
[2020-03-02] MEDS ORDERED: Sodium Chloride 0.9% 10 ML Syringe FLUSH PRN (19:55)
[2020-03-02] MEDS ORDERED: Levofloxacin/Dextrose 5%-Water 250 MG in Premix Bag 1 BAG IV SCH (20:00)
[2020-03-02] MEDS: Nortriptyline 25 MG Cap PO SCH (21:59)
[2020-03-02] MEDS: Aspirin 81 MG Tab.Chew PO SCH (21:59)
[2020-03-02] MEDS: fentaNYL 100 MCG/2 ML SDV IVPUSH PRN (22:06)
[2020-03-03] MEDS ORDERED: Levothyroxine 100 MCG Tab PO SCH (06:00)
[2020-03-03 08:14] VITALS: BP 142/47; PULSE 73
[2020-03-03] MEDS: Acetaminophen/HYDROcodone 325-5 MG Tab PO PRN (08:50)
[2020-03-03] MEDS: DULoxetine 30 MG Cap PO SCH (08:52)
[2020-03-03] MEDS: fentaNYL 100 MCG/2 ML SDV IVPUSH PRN (08:56)
[2020-03-03] MEDS: Metoprolol Tartrate 25 MG Tab PO SCH (08:59)
[2020-03-03] MEDS: Lutein/Minerals/Vit A,C & E Tab PO SCH (08:59)
[2020-03-03] MEDS: Docusate Sodium 100 MG Cap PO SCH (08:59)
[2020-03-03] MEDS: levETIRAcetam 500 MG Tab PO SCH (08:59)
[2020-03-03] MEDS: Insulin Lispro 100 Units/ML 3 ML Vial SUBCUT SCH (09:00)
[2020-03-03] MEDS: Enoxaparin 40 MG/0.4 ML Syringe SUBCUT SCH (09:00)
--- NOTE | 2020-03-03 10:11 | DISCH ---
FINAL DIAGNOSES: 1. Left flank pain, renal colic versus musculoskeletal spasm. 2. Hematuria. 3. Fibromyalgia. 4. Type 2 diabetes mellitus. 5. History of seizures. 6. Hypothyroidism. BRIEF HISTORY OF PRESENT ILLNESS: Please see H and P. Pertinent lab, x-ray, and other tests on admission, see H and P. HOSPITAL COURSE: The patient was admitted to General Medicine floor. She was started on IV fluids and IV pain management, and she was empirically started on IV Levaquin because of suspected urinary tract infection and hematuria. She had a slow improvement and because of the questionable finding on the CAT scan of the abdomen regarding her liver, an MRI was discussed with the patient, but since she is not a good candidate for MRI because of some hardware in her body, an ultrasound of the liver was done and this just showed fatty liver. There were no masses noted. The patient continued to have left flank pain, but this slowly improved and she was subsequently discharged. She will be continued on her hydrocodone as at home that she uses for fibromyalgia and she will also be given Flexeril as muscle relaxant. An appointment with Dr. Parker (Urology) will be set up for the patient because of the hematuria and I will see her for followup in 7 to 10 days at the clinic. CONDITION ON DISCHARGE: Improved. [facility] /[id number]
--- NOTE | 2020-03-03 13:46 | PN ---
DATE: 03/03/2020 SUBJECTIVE: The patient still has some left flank pain and some spasm-like pain, but overall, the patient mentioned that she is feeling better. She denies any fever, chills, chest pain, nausea, vomiting, nor any other complaints. An official report of the ultrasound of the liver showed fatty liver. No discrete intrahepatic cystic or solid mass lesion identified, and this was discussed with the patient. OBJECTIVE: Vital Signs: Blood pressure is 142/47, pulse of 73, respirations 20, temperature of 97.9. Heart: Regular rate and rhythm. Normal S1 and S2. No gallops. No rubs. Lungs: Equal bilaterally. No crackles, no wheezing. Abdomen: Soft, nontender. Bowel sounds positive. Back: Examination of the LS spine is negative for any pinpoint tenderness, but there is still reproducible left CVA tenderness with palpation. Extremities: Negative for any pedal edema. No calf tenderness. MEDICATIONS: Reviewed. PLAN: We will discharge the patient home today. We will continue with oral Levaquin for the next 5 days and we will resume her home medication. I am also going to put her on some Flexeril as muscle relaxant and we will schedule her to see Dr. Parker (Urology) because of the hematuria. I am going to see her for followup in 7 to 10 days at the clinic with a recheck urinalysis. [facility] /[id number]
== END 2020-03-03 10:35 | disposition home or self-care (01) | DRG 556 ==
LOC: DL.ED 15:19 → DL.MS 18:15 → DL.ED 18:23 → DL.MS 18:52 → UNDOADMIN 18:52 → UNDODISIN 03-03 10:35
PROVIDERS: ADMIT Internal Medicine; ATTEND Internal Medicine
DX: R10.32 Left lower quadrant pain (principal); M62.838 Other muscle spasm; N39.0 Urinary tract infection, site not specified; H91.90 Unspecified hearing loss, unspecified ear; N23 Unspecified renal colic; R31.9 Hematuria, unspecified; K76.0 Fatty (change of) liver, not elsewhere classified; M79.7 Fibromyalgia; E11.9 Type 2 diabetes mellitus without complications; R56.9 Unspecified convulsions; E03.9 Hypothyroidism, unspecified; E78.5 Hyperlipidemia, unspecified; E11.42 Type 2 diabetes mellitus with diabetic polyneuropathy; G40.909 Epilepsy, unspecified, not intractable, without status epilepticus; H35.30 Unspecified macular degeneration; E66.9 Obesity, unspecified; M51.36 Other intervertebral disc degeneration, lumbar region; Z98.49 Cataract extraction status, unspecified eye; Z98.890 Other specified postprocedural states; Z88.6 Allergy status to analgesic agent; M50.30 Other cervical disc degeneration, unspecified cervical region; H54.7 Unspecified visual loss; H91.92 Unspecified hearing loss, left ear; E78.00 Pure hypercholesterolemia, unspecified; Z79.4 Long term (current) use of insulin; I10 Essential (primary) hypertension; G89.29 Other chronic pain; M54.9 Dorsalgia, unspecified; M10.9 Gout, unspecified; M19.90 Unspecified osteoarthritis, unspecified site; G62.9 Polyneuropathy, unspecified; F32.9 Major depressive disorder, single episode, unspecified; I25.2 Old myocardial infarction; Z68.31 Body mass index [BMI] 31.0-31.9, adult; Z90.49 Acquired absence of other specified parts of digestive tract; Z90.710 Acquired absence of both cervix and uterus; Z88.5 Allergy status to narcotic agent; Z79.899 Other long term (current) drug therapy; Z79.82 Long term (current) use of aspirin; Z79.890 Hormone replacement therapy; Z79.84 Long term (current) use of oral hypoglycemic drugs; Z88.8 Allergy status to other drugs, medicaments and biological substances; Z90.89 Acquired absence of other organs
CPT/HCPCS: 36415; 71045; 74177; 80053; 81001; 83605; 84484; 85025; 85610; 87040 ×2; 87086; 96361; 96365; 96375; 96376; 99284; 99285; J2405 ×2; J3010 ×2; J7030; Q9967 ×2; 76705; 80048; 82962; 99222; 99232; 99238; A9270-GY; J1650; J1815-GY; J1956

== ENCOUNTER 2020-08-30 06:37 | Inpatient (IN) | payer MEDICARE, BC ==
--- NOTE | 2020-08-30 07:12 | EDM.PDOC ---
ED HPI GENERAL MEDICAL PROBLEM - General Source of Information: Reports: Patient, Family (Significant other), RN Notes Re viewed - History of Present Illness Onset: Today Onset Date: 08/30/20 Onset Time: 05:35 Duration: Minutes: Location: Reports: Head Quality: Reports: Ache Severity: Moderate Improves with: Reports: None Worsens with: Reports: None Context: Reports: Other (walking) Associated Symptoms: Reports: Other (fall with laceration on the scalp.) Head Pain Score (Numeric/FACES): 4 Back Pain Score (Numeric/FACES): 4 right foot Pain Score (Numeric/FACES): 5 <CarmenmemoShanikalyudmila - Last Filed: 09/05/20 02:16> <BashirMaegan Horowitz - Last Filed: 09/07/20 16:34> - General Chief Complaint: Trauma Stated Complaint: FELL TOP OF HEAD INJURY CUT, Time Seen by Provider: 08/30/20 06:40 - History of Present Illness INITIAL COMMENTS - FREE TEXT/NARRATIVE: 75 year old female who presents to the ER with her significant other for an evaluation of a head injury an hour after the incident. Patient is on Aspirin. Patient drove her to the ER and there is no cervical collar on, one applied in the ER. Patient reports she was going out of her house to walk her dog when she fell and hit her head on the book case. No one witness the fall but her reports by the time he got to the patient, she was awake and calling for her dog She is not aware if she was unconscious but the admits she was not unconscious. Patient's reports she has been having dizzy spells all week. She has not seen her PCP. Patient denies any fever/chills/ SOB or UTI symptoms. Trauma Notes: As above in HPI Arrival Time: 0640 C-Collar Status: Not placed by EMS; Placed upon arrival to facility at 0640 Spinal Board/Immobilization Status: Not placed as patient was ndriven to the ER by her spouse. GCS on Arrival: 15 Primary Trauma Survey Airway: Nasal and oral airway clear with no obstruction or deformity. Breathing: Spontaneous respirations with diminished bilateral breath sounds. Circulation: Heart rate and rhythm regular, but mildly tachycardic. Intact distal pulses to all four extremities. No cyanosis. Deformity/Disability: Dried blood noted on her hair and laceration of ontop of her head, Bilateral eyes, nares are in tact. No long bone deformities. Chest, abdomen, and pelvis benign to exam. Patient moving upper extremities to commands, open eyes or move lower extremities to commands. Exposure: Skin cool and dry. Report given to oncoming provider Maegan Camejo NP ([facility] - Related Data Allergies Allergy/AdvReac Type Severity Reaction Status Date / Time codeine Allergy Headache Verified 08/30/20 09:20 morphine Allergy Headache Verified 08/30/20 09:20 omeprazole Allergy Nausea Verified 08/30/20 09:20 phenobarbital Allergy Swelling Verified 08/30/20 09:20 Home Meds: Home Meds DULoxetine [Cymbalta] 60 mg PO DAILY 07/27/15 [History] Hydrocodone/Acetaminophen [Hydrocodone-Acetaminophen 5-325] 1 tab PO TID PRN 07/27/15 [History] Nortriptyline HCl 25 mg PO BEDTIME 07/27/15 [History] levETIRAcetam [Levetiracetam] 500 mg PO BID 07/27/15 [History] Lutein/Minerals/Vit A,C & E [Ocuvite] 1 tab PO BID 12/03/16 [History] Nitroglycerin [Nitrostat] 0.4 mg SL .Q5MIN 12/19/16 [History] Levothyroxine [Synthroid] 100 mcg PO DAILY 04/16/18 [History] glipiZIDE [Glucotrol] 10 mg PO BIDAC 04/16/18 [History] Acetaminophen [Tylenol] 650 mg PO Q4H PRN tablet 04/18/18 [Rx] Insulin Glarg,Human.Rec.Analog [Lantus] 48 units SQ BEDTIME 02/28/20 [History] Aspirin 81 mg PO DAILY 08/30/20 [History] Diclofenac Sodium 1 gm TOP BID PRN 08/30/20 [History] Semaglutide [Ozempic] 1 mg SQ WEEKLY 08/30/20 [History] Past Medical History HEENT History: Reports: Hard of Hearing, Impaired Vision, Macular Degeneration Other HEENT History: hard of hearing in the left ear, wears glasses Cardiovascular History: Reports: High Cholesterol, Hypertension, [place] Other Cardiovascular History: was told had a heart attack before, not sure when Respiratory History: Reports: None Gastrointestinal History: Reports: None Genitourinary History: Reports: None 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 Musculoskeletal History: Reports: Back Pain, Chronic, Fibromyalgia, Gout, Osteoarthritis, Other (See Below) Other Musculoskeletal History: Lumbago, degeneration of lumbar or lumbosacral intervertebral disc, cervicalgia, degeneration of cervical intervertebral Neurological History: Reports: Neuropathy, Peripheral, Seizure, Other (See Below) Other Neuro History: Epilepsy Psychiatric History: Reports: Depression Endocrine/Metabolic History: Reports: Diabetes, Type II, Hypothyroidism, Obesi ty/BMI 30+ Hematologic History: Reports: None Immunologic History: Reports: None Oncologic (Cancer) History: Reports: None Dermatologic History: Reports: None - Infectious Disease History Infectious Disease History: Reports: Chicken Pox, Measles, Mumps - Past Surgical History HEENT Surgical History: Reports: Cataract Surgery, Tonsillectomy GI Surgical History: Reports: Appendectomy, Colonoscopy Female Surgical History: Reports: Breast Biopsy, Hysterectomy Musculoskeletal Surgical History: Reports: Other (See Below) Other Musculoskeletal Surgeries/Procedures:: right ankle surgery with postsurgical ankle wound, spinal cord stimulator Oncologic Surgical History: Reports: Biopsy of Breast <[facility] - Last Filed: 09/05/20 02:16> Social & Family History - Family History Family Medical History: No Pertinent Family History - Caffeine Use Caffeine Use: Reports: Coffee, Tea - Living Situation & Occupation Living situation: Reports: , with Spouse Occupation: Retired <[facility] - Last Filed: 09/05/20 02:16> Review of Systems - Review of Systems Review Of Systems: Comprehensive ROS is negative, except as noted in HPI. <Maegan Camejo - Last Filed: 09/07/20 16:34> ED EXAM, GENERAL - Physical Exam Exam: See Below Exam Limited By: No Limitations General Appearance: Alert, No Apparent Distress Eye Exam: Bilateral Eye: EOMI, Normal Inspection, PERRL (4mm) Ears: Normal External Exam, Normal Canal, Hearing Grossly Normal, Normal TMs Ear Exam: Bilateral Ear: Auricle Normal, Canal Normal, TM normal Nose: Normal Inspection, Normal Mucosa, No Blood Throat/Mouth: Normal Inspection, Normal Voice, No Airway Compromise Head: Normocephalic, Other (9cm linear laceration to midline occpiut) Neck: Other (C-collar in place during assessment; C-spine cleared via imagine and exam at 0723, c-collar removed by publications writer at 0724) Respiratory/Chest: No Accessory Muscle Use, Decreased Breath Sounds, Other (2L of O2 via NC to maintain saturations >92%) Cardiovascular: Normal Peripheral Pulses, Regular Rate, Rhythm, No Edema, No Gallop, No Murmur, No Rub Peripheral Pulses: 2+: Radial (L), Radial (R), Dorsalis Pedis (L), Dorsalis Pedis (R) GI/Abdominal: Normal Bowel Sounds, Soft, Non-Tender, No Distention, No Abnormal Bruit, No Mass, Pelvis Stable (Female) Exam: Deferred Rectal (Female) Exam: Deferred Back Exam: Normal Inspection, Full Range of Motion Extremities: Normal Inspection, Normal Range of Motion, Non-Tender, No Pedal Edema, Normal Capillary Refill Neurological: Alert, Oriented, CN II-XII Intact, Normal Cognition, No Motor/Sensory Deficits Psychiatric: Normal Affect, Normal Mood Skin Exam: Warm, Dry, Intact, Normal Color, No Rash <KaushiktaliaMaegan Lor - Last Filed: 09/07/20 16:34> ED TRAUMA PROCEDURES - Laceration/Wound Repair Middle Posterior Medial Occipital Head Lac/Wound Length In cm: 9 Appearance: Subcutaneous, Linear, Clean Distal NVT: No Tendon Injury Anesthetic Type: Other (NA) Skin Prep: Chlorhexidine (Hibiciens) Exploration/Debridement/Repair: Wound Explored, In a Bloodless Field, Explored to Base, No Foreign Material Found, Wound Margins Revised Closed With: Marycarmen (21 marycarmen placed without complication) Drain Placement: No Sterile Dressing Applied: Nurse Tetanus Status Addressed: Yes Complications: No <BashirMaegan Lor - Last Filed: 09/07/20 16:34> #1 Interpretation QRS: LBBB <Isak Mccarty - Last Filed: 09/05/20 02:16> #1 Interpretation EKG Date: 08/30/20 Time: 06:50 <BashirMaegan Lor - Last Filed: 09/07/20 16:34> #1 Interpretation EKG Interpretation Comments: Sinus rhythm with left bundle branch block (Isak Mccarty) Course <BashirMaegan Lor - Last Filed: 09/07/20 16:34> - Vital Signs Last Recorded V/S: Last Vital Signs Temp 97.8 F 09/01/20 13:13 Pulse 85 09/01/20 13:13 Resp 18 09/01/20 13:13 BP 140/49 L 09/01/20 13:13 Pulse Ox 93 L 09/01/20 13:13 - Orders/Labs/Meds Labs: Laboratory Tests 08/30/20 08/30/20 08/30/20 Range/Units 06:45 06:45 06:45 WBC 8.8 (5.0-10.0) 10^3/uL RBC 4.32 (4.2-5.4) 10^6/uL Hgb 16.0 (12.0-16.0) g/dL Hct 44.6 (37.0-47.0) % MCV 103.2 H (80-100) fL MCH 37.0 H (27.0-34.0) pg MCHC 35.9 H (33.0-35.0) g/dL Plt Count 243 (150-450) 10^3/uL Neut % (Auto) 48.6 (42.2-75.2) % Lymph % (Auto) 36.6 (20.5-50.1) % Martin % (Auto) 12.6 H (2-8) % Eos % (Auto) 2.0 (1.0-3.0) % Baso % (Auto) 0.2 (0.0-1.0) % PT 10.3 (9.0-12.0) SEC INR 1.0 (0.9-1.2) APTT 24.1 (22.0-34.0) SEC Sodium 141 (136-145) mmol/L Potassium 4.1 (3.5-5.1) mmol/L Chloride 103 (98-107) mmol/L Carbon Dioxide 33 H (21-32) mmol/L Anion Gap 9.1 (7-13) mEq/L BUN 13 (7-18) mg/dL Creatinine 1.29 H (0.55-1.02) mg/dL Est Cr Clr Drug Dosing TNP Estimated GFR (MDRD) 41 BUN/Creatinine Ratio 10.1 (No establ ref range) Glucose 142 H (74-99) mg/dL Calcium 8.9 (8.5-10.1) mg/dL Total Bilirubin 0.6 (0.2-1.0) mg/dL AST 5 L (15-37) U/L ALT 73 H (14-59) U/L Alkaline Phosphatase 72 (46-116) U/L Troponin I (0.000-0.056) ng/mL B-Natriuretic Peptide (0-100) pg/ml Total Protein 7.9 (6.4-8.2) g/dL Albumin 3.1 L (3.4-5.0) g/dL Globulin 4.8 Albumin/Globulin Ratio 0.65 Influenza Type A RNA (NEGATIVE) Influenza Type B RNA (NEGATIVE) SARS-CoV-2 RNA (ALFREDO) (NEGATIVE) 08/30/20 08/30/20 08/30/20 Range/Units 06:45 06:45 09:11 WBC (5.0-10.0) 10^3/uL RBC (4.2-5.4) 10^6/uL Hgb (12.0-16.0) g/dL Hct (37.0-47.0) % MCV (80-100) fL MCH (27.0-34.0) pg MCHC (33.0-35.0) g/dL Plt Count (150-450) 10^3/uL Neut % (Auto) (42.2-75.2) % Lymph % (Auto) (20.5-50.1) % Martin % (Auto) (2-8) % Eos % (Auto) (1.0-3.0) % Baso % (Auto) (0.0-1.0) % PT (9.0-12.0) SEC INR (0.9-1.2) APTT (22.0-34.0) SEC Sodium (136-145) mmol/L Potassium (3.5-5.1) mmol/L Chloride (98-107) mmol/L Carbon Dioxide (21-32) mmol/L Anion Gap (7-13) mEq/L BUN (7-18) mg/dL Creatinine (0.55-1.02) mg/dL Est Cr Clr Drug Dosing Estimated GFR (MDRD) BUN/Creatinine Ratio (No establ ref range) Glucose (74-99) mg/dL Calcium (8.5-10.1) mg/dL Total Bilirubin (0.2-1.0) mg/dL AST (15-37) U/L ALT (14-59) U/L Alkaline Phosphatase (46-116) U/L Troponin I < 0.017 (0.000-0.056) ng/mL B-Natriuretic Peptide 15 (0-100) pg/ml Total Protein (6.4-8.2) g/dL Albumin (3.4-5.0) g/dL Globulin Albumin/Globulin Ratio Influenza Type A RNA Negative (NEGATIVE) Influenza Type B RNA Negative (NEGATIVE) SARS-CoV-2 RNA (ALFREDO) Negative (NEGATIVE) Meds: Medications Discontinued Medications Generic Name Dose Route Start Last Admin Trade Name Freq PRN Reason Stop Dose Admin Acetaminophen 650 mg 08/30/20 11:09 08/30/20 23:41 Acetaminophen 325 Mg Tab PO 650 mg Q4H PRN Administration Pain (Mild 1-3)/fever Hydrocodone Bitart/Acetaminophen 1 tab 08/30/20 11:50 08/31/20 04:37 Acetaminophen/Hydrocodone 325-5 Mg Tab PO 1 tab TID PRN Administration Pain Hydrocodone Bitart/Acetaminophen 1 tab 08/31/20 09:18 09/01/20 15:47 Acetaminophen/Hydrocodone 325-5 Mg Tab PO 1 tab Q3H PRN Administration Pain (moderate 4-6) Aspirin 81 mg 08/31/20 09:00 09/01/20 08:00 Aspirin 81 Mg Tab.Chew PO 81 mg DAILY ABUNDIO Administration Barium Sulfate 450 ml 08/31/20 11:45 08/31/20 12:56 Barium Sulfate W/V 2.1% Oral Susp 450 Ml Bottle PO 08/31/20 12:46 450 ml Q1H ABUNDIO Administration Dextrose/Water 50 ml 08/30/20 11:22 50% Dextrose In Water 50 Ml Syringe IV ASDIRECTED PRN Hypoglycemia Diphtheria/Tetanus/Acell Pertussis 0.5 ml 08/30/20 09:19 08/30/20 09:24 Diphtheria,Pertussis(Acell),Tetanus Vaccine 0.5 Ml Syringe IM 08/30/20 09:20 0.5 ml .ONCE ONE Administration Duloxetine HCl 60 mg 08/31/20 09:00 09/01/20 08:00 Duloxetine 30 Mg Cap PO 60 mg DAILY ABUNDIO Administration Glucagon 1 mg 08/30/20 11:22 Glucagon,Human Recombinant 1 Mg Vial IM ASDIRECTED PRN Hypoglycemia Hydromorphone HCl 1 mg 08/30/20 08:42 08/30/20 08:51 Hydromorphone 1 Mg/Ml Syringe IVPUSH 08/30/20 08:43 1 mg ONETIME ONE Administration Lactated Ringer's 1,000 mls @ 500 mls/hr 08/30/20 08:15 08/30/20 08:13 Ringers, Lactated IV 500 mls/hr ASDIRECTED ABUNDIO Administration Sodium Chloride 1,000 mls @ 125 mls/hr 08/30/20 11:15 09/01/20 12:40 Normal Saline IV 125 mls/hr ASDIRECTED ABUNDIO Infusion Insulin Glargine 48 unit 08/30/20 21:00 08/31/20 21:15 Insulin Glarg,Human.Rec.Analog 100 Unit/Ml SUBCUT 48 units BEDTIME ABUNDIO Administration Insulin Human Lispro 0 unit 08/30/20 12:00 09/01/20 12:40 Insulin Lispro 100 Units/Ml 3 Ml Vial SUBCUT 4 units WITHMEALSANDBED ABUNDIO Administration Protocol Iopamidol 100 ml 08/30/20 11:30 08/30/20 14:35 Iopamidol 755 Mg/Ml 100 Ml Bottle IVPUSH 08/30/20 11:31 75 ml ONETIME ONE Administration Iopamidol 100 ml 08/31/20 11:34 08/31/20 13:54 Iopamidol 612 Mg/Ml 100 Ml Bottle IVPUSH 08/31/20 11:35 100 ml ONETIME ONE Administration Levetiracetam 500 mg 08/30/20 12:00 09/01/20 08:00 Levetiracetam 500 Mg Tab PO 500 mg BID ABUNDIO Administration Levothyroxine Sodium 100 mcg 08/31/20 09:00 Levothyroxine 100 Mcg Tab PO DAILY ABUNDIO Levothyroxine Sodium 100 mcg 08/31/20 06:00 09/01/20 05:58 Levothyroxine 100 Mcg Tab PO 100 mcg DAILY@0600 ABUNDIO Administration Nortriptyline HCl 25 mg 08/30/20 21:00 08/31/20 20:44 Nortriptyline 25 Mg Cap PO 25 mg BEDTIME ABUNDIO Administration - Radiology Interpretation Free Text/Narrative:: [facility] [place] [facility] Final Radiology Report Call: [phone] assistance Online chat: [email or web address] Name: RUDY BORGES Age: 75Years F Date: 08/30/2020 SSN: -- : [id number] Study: CR CHEST 1V FRONTAL Requesting Physician: Maegan Camejo Images: 1 Addl Studies: Provided Clinical History: Shortness of breath with exertion Contrast: Contrast Medium: Contrast Amount: Contrast Method: CONFIDENTIALITY STATEMENT This report is intended only for use by the referring physician, and only in accordance with law. If you received this in error, call [phone]. Page 1 of 1 PROCEDURE INFORMATION: Exam: XR Chest Exam date and time: 08/30/2020 8:16 AM Age: 75 years old Clinical indication: Shortness of breath; Additional info: Shortness of breath with exertion TECHNIQUE: Imaging protocol: XR of the chest Views: 1 view. COMPARISON: CR Chest 1V Frontal 02/28/2020 5:26 PM FINDINGS: Lungs: Minimal ground-glass airspace disease at the lower lung fonseca bilaterally. Pleural spaces: Unremarkable. No pleural effusion. No pneumothorax. Heart/Mediastinum: Unremarkable. No cardiomegaly. Bones/joints: Unremarkable. IMPRESSION: 1. Minimal ground-glass airspace disease at the lower lung fonseca bilaterally. 2. Followup radiographs recommended after appropriate therapy. Thank you for allowing us to participate in the care of your patient. Dictated and Authenticated by: Duane Cobian MD 08/30/2020 8:21 AM Central Time ([place] & [place]) (Maegan Camejo) - Re-Assessments/Exams Free Text/Narrative Re-Assessment/Exam: 08/30/20 CT head unremarkable for acute processes; no hemorrhage appreciated. CT c-spine unremarkable for acute processes; chronic degenerative changes appreciated. C- spine cleared by imaging and physical exam by publications writer at 0723 with c-collar removed at 0724. Given progressive weakness, dizziness, and shortness of breath, will obtain plain chest film. Laceration to midline occiput repaired without complication; 21 marycarmen utilized. GCS at one hour: 15 CBC unremarkable for acute processes. Coags appropriate. Kidney and Liver function WNL. Troponin WNL. Chest xray remarkable for ground glass opacities to bilateral lower lungs. COVID and Influenza negative. Given progressive shortness of breath and weakness and requiring oxygen to maintain appropriate saturations will discuss case with Dr. Freitas for inpatient admission to this facility as trauma has been ruled out. Dr Perry kindly agreed to accept patient for inpatient admission GCS at discharge: 15 (Maegan Camejo) Departure <[facility] - Last Filed: 09/05/20 02:16> - Departure Time of Disposition: 10:26 Condition: Good <Maegan Camejo - Last Filed: 09/07/20 16:34> - Departure Disposition: Admitted As Inpatient 68 Clinical Impression: Syncope and collapse, Orthostatic hypotension, Acute respiratory failure with hypoxia Diabetes type 2, controlled Qualifiers: Diabetes mellitus buttermaker insulin use: unspecified buttermaker insulin use status Diabetes mellitus complication status: with unspecified complications Qualified Code(s): E11.8 - Type 2 diabetes mellitus with unspecified complications
[2020-08-30 07:15] LABS: ANION GAP 9.1 mEq/L (7-13); CHLORIDE,CL 103 mmol/L (98-107); SODIUM,NA 141 mmol/L (136-145)
--- NOTE | 2020-08-30 07:16 | CT ---
PROCEDURE INFORMATION: Exam: CT Cervical Spine Without Contrast Exam date and time: 08/30/2020 7:03 AM Age: 75 years old Clinical indication: Injury or trauma; Blunt trauma; Patient HX: Fall. Hit back of her head. TECHNIQUE: Imaging protocol: Computed tomography images of the cervical spine without contrast. Radiation optimization: All CT scans at this facility use at least one of these dose optimization techniques: automated exposure control; mA and/or kV adjustment per patient size (includes targeted exams where dose is matched to clinical indication); or iterative reconstruction. COMPARISON: No relevant prior studies available. FINDINGS: Bones/joints: No acute fracture. Status post anterior fusion at the C4-C5 level. Grade 1 anterolisthesis of C5 on C6. Discs/Spinal canal/Neural foramina: The occipital condyles articulate normally with the first cervical vertebra bilaterally. The odontoid is intact. The lateral masses of C1 are in normal position with respect to C2. Facet joints demonstrate no obvious dislocation. Spinous processes are without acute abnormality. Mild degenerative changes at the atlantoaxial articulation. Mild narrowing of the C5-C6 disc space. Severe narrowing of the C6-C7 disc space with associated marginal osteophytes. Mastoid air cells: Partial opacification of the inferior left mastoid air cells. Lungs: Lung apices are normal. Soft tissues: Unremarkable. IMPRESSION: 1. Severe narrowing of the C6-C7 disc space with associated marginal osteophytes. 2. Grade 1 anterolisthesis of C5 on C6. 3. No acute findings
[2020-08-30 07:19] LABS: PTT,PARTIAL THROMBOPLSTIN TIME 24.1 SEC (22.0-34.0)
--- NOTE | 2020-08-30 07:19 | CT ---
PROCEDURE INFORMATION: Exam: CT Head Without Contrast Exam date and time: 08/30/2020 7:03 AM Age: 75 years old Clinical indication: Injury or trauma; Blunt trauma (contusions or hematomas); Consciousness not specified; Patient HX: Fall. Hit back of head. TECHNIQUE: Imaging protocol: Computed tomography of the head without contrast. Radiation optimization: All CT scans at this facility use at least one of these dose optimization techniques: automated exposure control; mA and/or kV adjustment per patient size (includes targeted exams where dose is matched to clinical indication); or iterative reconstruction. COMPARISON: CT Head wo Cont 04/16/2018 12:37 PM FINDINGS: Brain: Multiple small hypodensities at the basal ganglia consistent with remote lacunar infarctions. There is an expected degree of age-related atrophy and chronic white matter ischemic changes. Encephalomalacia within the left mahajan radiata without change. No acute intra-axial or extra-axial hemorrhage appreciated. Cerebral ventricles: No ventriculomegaly. Bones/joints: Unremarkable. No acute fracture. Paranasal sinuses: Visualized sinuses are unremarkable. No fluid levels. Mastoid air cells: Partial opacification of the inferior left mastoid air cells Soft tissues: Right posterior parietal scalp hematoma. IMPRESSION: 1. Multiple small hypodensities at the basal ganglia consistent with remote lacunar infarctions. 2. There is an expected degree of age-related atrophy and chronic white matter ischemic changes. 3. Encephalomalacia within the left mahajan radiata without change. 4. No acute intra-axial or extra-axial hemorrhage appreciated.
[2020-08-30] MEDS ORDERED: Lactated Ringers 1,000 ML IV SCH (08:15)
--- NOTE | 2020-08-30 08:21 | CR ---
PROCEDURE INFORMATION: Exam: XR Chest Exam date and time: 08/30/2020 8:16 AM Age: 75 years old Clinical indication: Shortness of breath; Additional info: Shortness of breath with exertion TECHNIQUE: Imaging protocol: XR of the chest Views: 1 view. COMPARISON: CR Chest 1V Frontal 02/28/2020 5:26 PM FINDINGS: Lungs: Minimal ground-glass airspace disease at the lower lung fonseca bilaterally. Pleural spaces: Unremarkable. No pleural effusion. No pneumothorax. Heart/Mediastinum: Unremarkable. No cardiomegaly. Bones/joints: Unremarkable. IMPRESSION: 1. Minimal ground-glass airspace disease at the lower lung fonseca bilaterally. 2. Followup radiographs recommended after appropriate therapy.
[2020-08-30] MEDS ORDERED: HYDROmorphone 1 MG/ML Syringe IVPUSH ONE (08:42)
[2020-08-30] MEDS ORDERED: Diphtheria,Pertussis(Acell),Tetanus Vaccine 0.5 ML Syringe IM ONE (09:19)
[2020-08-30 09:56] LABS: CORONAVIRUS COVID-19 NAA NEGATIVE (NEGATIVE)
[2020-08-30] MEDS ORDERED: Acetaminophen 325 MG Tab PO PRN (11:09)
[2020-08-30] MEDS ORDERED: Glucagon,Human Recombinant 1 MG Vial IM PRN (11:22)
[2020-08-30] MEDS ORDERED: 50% Dextrose in Water 50 ML Syringe IV PRN (11:22)
[2020-08-30] MEDS ORDERED: Iopamidol 755 Mg/ML 100 ML Bottle IVPUSH ONE (11:30)
--- NOTE | 2020-08-30 11:32 | PCM.HP ---
H&P History of Present Illness - General Date of Service: 08/30/20 Admit Problem/Dx: Admission Diagnosis/Problem Admission Diagnosis/Problem Acute respiratory failure with hypoxia and hypercapnia - History of Present Illness Initial Comments - Free Text/Narative: 75F w/ pmh obesity, seizure d/o, DM2, HL, fibromyalgia, gout, s/p right ankle surgery c/b staph infection and multiple revisions, hypothyroidism, macular degeneration p/w fall. Pt states she was readying to go out to walk her dog when she became lightheaded fell down and hit her head on piece of furniture. She has no recollection of moment of falling. arrived momentarily and found her on the floor, awake, fully alert and aware of her surroundings, w/ blood on the floor but the scalp had stopped bleeding. There is no mention of fecal or urinary incontinence. In the ER the pt required 21 gary placed on her occipital scalp. She was noted orthostatic w/ SBP dropping to low 80s. Additionally the pt was noted to have room air o2 sats 91-92% but occasionally desaturate to low 80s as well. Pt notes dyspnea on exertion ongoing and worsening for at least past year. EMR review also notes pt has had a negative lexiscan in 2017 with the indication being listed 'SAN'. Particularly in the past one month she has also noted orthostatic dizziness and unsteadiness. At this point she needs rest even after taking a shower due to function limiting dyspnea and orthostasis. She denies any pleurisy, chest pains, nausea, palpitations or cough. No fevers. There has been no notable weight gain or orthopnea. Pt does snore and has mild daytime somnolence. She completed her Simbionix COVID19 vaccination series 3 weeks ago. - Related Data Allergies/Adverse Reactions: Allergies Allergy/AdvReac Type Severity Reaction Status Date / Time codeine Allergy Headache Verified 08/30/20 09:20 morphine Allergy Headache Verified 08/30/20 09:20 omeprazole Allergy Nausea Verified 08/30/20 09:20 phenobarbital Allergy Swelling Verified 08/30/20 09:20 Home Medications: Home Meds DULoxetine [Cymbalta] 60 mg PO DAILY 07/27/15 [History] Hydrocodone/Acetaminophen [Hydrocodone-Acetaminophen 5-325] 1 tab PO TID PRN 07/27/15 [History] Nortriptyline HCl 25 mg PO BEDTIME 07/27/15 [History] Simvastatin 20 mg PO BEDTIME 07/27/15 [History] levETIRAcetam [Levetiracetam] 500 mg PO BID 07/27/15 [History] Lutein/Minerals/Vit A,C & E [Ocuvite] 1 tab PO BID 12/03/16 [History] Metoprolol Tartrate 25 mg PO BID 12/19/16 [History] Nitroglycerin [Nitrostat] 0.4 mg SL .Q5MIN 12/19/16 [History] Levothyroxine [Synthroid] 100 mcg PO DAILY 04/16/18 [History] glipiZIDE [Glucotrol] 10 mg PO BIDAC 04/16/18 [History] Acetaminophen [Tylenol] 650 mg PO Q4H PRN tablet 04/18/18 [Rx] Insulin Glarg,Human.Rec.Analog [Lantus] 48 units SQ BEDTIME 02/28/20 [History] Aspirin 81 mg PO DAILY 08/30/20 [History] Diclofenac Sodium 1 gm TOP DAILY PRN 08/30/20 [History] Semaglutide [Ozempic] 1 mg SQ WEEKLY 08/30/20 [History] Past Medical History HEENT History: Reports: Hard of Hearing, Impaired Vision, Macular Degeneration Other HEENT History: hard of hearing in the left ear, wears glasses Cardiovascular History: Reports: High Cholesterol, Hypertension, [place] Other Cardiovascular History: was told had a heart attack before, not sure when Respiratory History: Reports: None Gastrointestinal History: Reports: None Genitourinary History: Reports: None [employer] History: Reports: None Musculoskeletal History: Reports: Back Pain, Chronic, Fibromyalgia, Gout, Osteoarthritis, Other (See Below) Other Musculoskeletal History: Lumbago, degeneration of lumbar or lumbosacral intervertebral disc, cervicalgia, degeneration of cervical intervertebral Neurological History: Reports: Neuropathy, Peripheral, Seizure, Other (See Below) Other Neuro History: Epilepsy Psychiatric History: Reports: Depression Endocrine/Metabolic History: Reports: Diabetes, Type II, Hypothyroidism, Obesity/BMI 30+ Hematologic History: Reports: None Immunologic History: Reports: None Oncologic (Cancer) History: Reports: None Dermatologic History: Reports: None - Infectious Disease History Infectious Disease History: Reports: Chicken Pox, Measles, Mumps - Past Surgical History HEENT Surgical History: Reports: Cataract Surgery, Tonsillectomy GI Surgical History: Reports: Appendectomy, Colonoscopy Female Surgical History: Reports: Breast Biopsy, Hysterectomy Musculoskeletal Surgical History: Reports: Other (See Below) Other Musculoskeletal Surgeries/Procedures:: right ankle surgery with postsurgical ankle wound, spinal cord stimulator Oncologic Surgical History: Reports: Biopsy of Breast Social & Family History - Family History Family Medical History: No Pertinent Family History - Caffeine Use Caffeine Use: Reports: Coffee, Tea - Living Situation & Occupation Living situation: Reports: , with Spouse Occupation: Retired H&P Review of Systems - Review of Systems: Review Of Systems: See Below General: Denies: Fever, Chills, Malaise, Diaphoresis HEENT: Denies: Headaches, Vertigo Pulmonary: Reports: Shortness of Breath (see HPI). Denies: Wheezing, Pleuritic Chest Pain, Cough, Sputum, Hemoptysis Cardiovascular: Reports: Lightheadedness. Denies: Chest Pain, Palpitations, Orthopnea, PND, Edema Gastrointestinal: Denies: Abdominal Pain, Constipation, Diarrhea, Nausea, Vomiting Genitourinary: Denies: Dysuria Musculoskeletal: Reports: Joint Pain (right ankle - chronic) Skin: Denies: Jaundice Psychiatric: Reports: Depression, Anxiety Neurological: Reports: Dizziness Hematologic/Lymphatic: Denies: Anemia Exam - Exam Exam: See Below - Exam Quality Assessment: Supplemental Oxygen (1L) General: Alert, Oriented, Cooperative HEENT: Conjunctiva Clear, Other (large, non bleeding laceration in posterior scalr s/p gary) Neck: Supple. No: Carotid Bruit Lungs: Clear to Auscultation, Normal Respiratory Effort Cardiovascular: Regular Rate, Regular Rhythm GI/Abdominal Exam: Normal Bowel Sounds, Soft, Non-Tender, No Distention Back Exam: Normal Inspection Extremities: No Pedal Edema Skin: Warm, Dry Neurological: Normal Speech Neuro Extensive - Mental Status: Alert, Oriented x3, Normal Mood/Affect, Memory Intact Neuro Extensive - Motor, Sensory, Reflexes: No: Ataxia, Tremor Psychiatric: Alert, Normal Affect, Normal Mood - Patient Data Lab Results Last 24 hrs: Laboratory Results - last 24 hr 08/30/20 08/30/20 08/30/20 Range/Units 06:45 06:45 06:45 WBC 8.8 (5.0-10.0) 10^3/uL RBC 4.32 (4.2-5.4) 10^6/uL Hgb 16.0 (12.0-16.0) g/dL Hct 44.6 (37.0-47.0) % MCV 103.2 H (80-100) fL MCH 37.0 H (27.0-34.0) pg MCHC 35.9 H (33.0-35.0) g/dL Plt Count 243 (150-450) 10^3/uL Neut % (Auto) 48.6 (42.2-75.2) % Lymph % (Auto) 36.6 (20.5-50.1) % [place] % (Auto) 12.6 H (2-8) % Eos % (Auto) 2.0 (1.0-3.0) % Baso % (Auto) 0.2 (0.0-1.0) % PT 10.3 (9.0-12.0) SEC INR 1.0 (0.9-1.2) APTT 24.1 (22.0-34.0) SEC Sodium 141 (136-145) mmol/L Potassium 4.1 (3.5-5.1) mmol/L Chloride 103 (98-107) mmol/L Carbon Dioxide 33 H (21-32) mmol/L Anion Gap 9.1 (7-13) mEq/L BUN 13 (7-18) mg/dL Creatinine 1.29 H (0.55-1.02) mg/dL Est Cr Clr Drug Dosing TNP Estimated GFR (MDRD) 41 BUN/Creatinine Ratio 10.1 (No establ ref range) Glucose 142 H (74-99) mg/dL Calcium 8.9 (8.5-10.1) mg/dL Total Bilirubin 0.6 (0.2-1.0) mg/dL AST 5 L (15-37) U/L ALT 73 H (14-59) U/L Alkaline Phosphatase 72 (46-116) U/L Troponin I (0.000-0.056) ng/mL Total Protein 7.9 (6.4-8.2) g/dL Albumin 3.1 L (3.4-5.0) g/dL Globulin 4.8 Albumin/Globulin Ratio 0.65 Influenza Type A RNA (NEGATIVE) Influenza Type B RNA (NEGATIVE) SARS-CoV-2 RNA (ALFREDO) (NEGATIVE) 08/30/20 08/30/20 Range/Units 06:45 09:11 WBC (5.0-10.0) 10^3/uL RBC (4.2-5.4) 10^6/uL Hgb (12.0-16.0) g/dL Hct (37.0-47.0) % MCV (80-100) fL MCH (27.0-34.0) pg MCHC (33.0-35.0) g/dL Plt Count (150-450) 10^3/uL Neut % (Auto) (42.2-75.2) % Lymph % (Auto) (20.5-50.1) % [place] % (Auto) (2-8) % Eos % (Auto) (1.0-3.0) % Baso % (Auto) (0.0-1.0) % PT (9.0-12.0) SEC INR (0.9-1.2) APTT (22.0-34.0) SEC Sodium (136-145) mmol/L Potassium (3.5-5.1) mmol/L Chloride (98-107) mmol/L Carbon Dioxide (21-32) mmol/L Anion Gap (7-13) mEq/L BUN (7-18) mg/dL Creatinine (0.55-1.02) mg/dL Est Cr Clr Drug Dosing Estimated GFR (MDRD) BUN/Creatinine Ratio (No establ ref range) Glucose (74-99) mg/dL Calcium (8.5-10.1) mg/dL Total Bilirubin (0.2-1.0) mg/dL AST (15-37) U/L ALT (14-59) U/L Alkaline Phosphatase (46-116) U/L Troponin I < 0.017 (0.000-0.056) ng/mL Total Protein (6.4-8.2) g/dL Albumin (3.4-5.0) g/dL Globulin Albumin/Globulin Ratio Influenza Type A RNA Negative (NEGATIVE) Influenza Type B RNA Negative (NEGATIVE) SARS-CoV-2 RNA (ALFREDO) Negative (NEGATIVE) Result Diagrams: 08/30/20 06:45 08/30/20 06:45 *Q Meaningful Use (ADM) - VTE *Q VTE Anticoagulation Contraindications: Medical/Procedure Contrai Problem List Initiated/Reviewed/Updated: No Orders Last 24hrs: Active Orders 24 hr Category Date Time Status Admission Diagnosis [ADT] Stat ADT 08/30/20 10:21 Ordered Admission Status [Patient Status] [ADT] Routine ADT 08/30/20 10:21 Active Patient Status [ADT] Routine ADT 08/30/20 11:09 Active Blood Glucose Check, Bedside [RC] WITHMEALSANDBED Care 08/30/20 11:22 Active Cardiac Monitoring [RC] CONTINUOUS Care 08/30/20 11:11 Active Oxygen Therapy [RC] PRN Care 08/30/20 11:09 Active Up With Assistance [RC] ASDIRECTED Care 08/30/20 11:09 Active VTE/DVT Education [RC] PER UNIT ROUTINE Care 08/30/20 11:09 Active Vital Signs [RC] Q4H Care 08/30/20 11:09 Active PT Evaluation and Treatment [CONS] Routine Cons 08/30/20 11:09 Active Consistent Carbohydrate Diet [DIET] Diet 08/30/20 Lunch Active CTA Chest W WO Contrast [Ang Chest] [CT] Urgent Exams 08/30/20 11:24 Ordered B-TYPE NATRIURETIC PEPTIDE,BNP [CHEM] Routine Lab 08/30/20 06:45 Received BASIC METABOLIC PANEL,BMP [CHEM] AM Lab 08/31/20 05:11 Ordered CBC WITH AUTO DIFF [HEME] AM Lab 08/31/20 05:11 Ordered HEPATIC FUNCTION PANEL,HFP [CHEM] AM Lab 08/31/20 05:11 Ordered MAGNESIUM [CHEM] AM Lab 08/31/20 05:11 Ordered PHOSPHORUS [CHEM] AM Lab 08/31/20 05:11 Ordered UA RFX THI AND CULT IF INDIC [URIN] Stat Lab 08/30/20 06:42 Ordered Acetaminophen [TylenoL] Med 08/30/20 11:09 Active 650 mg PO Q4H PRN Dextrose 50% in Water Med 08/30/20 11:22 Ordered 50 ml IV ASDIRECTED PRN Glucagon,Human Recombinant [GlucaGen] Med 08/30/20 11:22 Ordered 1 mg IM ASDIRECTED PRN Insulin Lispro [HumaLOG] Med 08/30/20 12:00 Ordered See Protocol SUBCUT WITHMEALSANDBED Lactated Ringers [Ringers, Lactated] 1,000 ml Med 08/30/20 08:15 Active IV ASDIRECTED Sodium Chloride 0.9% [Normal Saline] 1,000 ml Med 08/30/20 11:15 Active IV ASDIRECTED Anticoagulation Contraindications VTE [AST] Per Unit Oth 08/30/20 11:09 Ordered Routine Resuscitation Status Routine Resus Stat 08/30/20 11:09 Ordered Medication Orders Acetaminophen (Acetaminophen 325 Mg Tab) 650 mg PO Q4H PRN PRN Reason: Pain (Mild 1-3)/fever Dextrose/Water (50% Dextrose In Water 50 Ml Syringe) 50 ml IV ASDIRECTED PRN PRN Reason: Hypoglycemia Glucagon (Glucagon,Human Recombinant 1 Mg Vial) 1 mg IM ASDIRECTED PRN PRN Reason: Hypoglycemia Lactated Ringer's (Ringers, Lactated) 1,000 mls @ 500 mls/hr IV ASDIRECTED ABUNDIO Last Admin: 08/30/20 08:13 Dose: 500 mls/hr Documented by: LAROCHR Sodium Chloride (Normal Saline) 1,000 mls @ 125 mls/hr IV ASDIRECTED ABUNDIO Insulin Human Lispro (Insulin Lispro 100 Units/Ml 3 Ml Vial) 0 unit SUBCUT WITHMEALSANDBED ABUNDIO; Protocol Assessment/Plan Comment:: #syncope 2/2 orthostatic hypotension - pt describes at least a month long hx of orthostasis - denies medication changes but perhaps feeling 'dry' - will provide IVF - check echo - cycle troponins - hold BP meds #acute hypoxic respiratory failure - unclear chronicity but pt w/ low normal sats 90-92% and notably desaturated in the ER - CXR unremarkable on my read but w/ bibasilar changes per radiologist - no infectious symptoms - COVID19 neg and s/p vaccine - given presentation w/ orthostatic hypotension/tachycardia, syncope/near syncope will check CTA chest to r/o PE as well as evaluate the lung parenchyma - if negative the sats may be due to OHS/VALERIE #DM - hold oral hypoglycemics - GLENROY #HT - hold BP meds #seizure d/o / gout / hypothyroidism / fibromyalgia / s/p right ankle surgery - c/w home meds PPX - hold chemoppx given scalp bleeding and head trauma Full code Silvano [phone] updated at bedside
[2020-08-30] MEDS: Insulin Lispro 100 Units/ML 3 ML Vial SUBCUT SCH ×3 (12:47→21:16)
--- NOTE | 2020-08-30 12:52 | CT ---
PROCEDURE INFORMATION: Exam: CT Chest With Contrast; Diagnostic Exam date and time: 08/30/2020 12:34 PM Age: 75 years old Clinical indication: Shortness of breath; Additional info: Syncope / okeefe / hypoxia - R/O pe or parenchymal dz TECHNIQUE: Imaging protocol: Diagnostic computed tomography of the chest with contrast. Radiation optimization: All CT scans at this facility use at least one of these dose optimization techniques: automated exposure control; mA and/or kV adjustment per patient size (includes targeted exams where dose is matched to clinical indication); or iterative reconstruction. Contrast material: ISOVUE 370; Contrast volume: 75 ml; Contrast route: INTRAVENOUS (IV); COMPARISON: CR Chest 1V Frontal 08/30/2020 8:16 AM FINDINGS: Tubes, catheters and devices: Neurostimulator leads within the lower thoracic spine. Thyroid: 1 cm hypoattenuating nodule within the right lobe of the thyroid gland. Lungs: Unremarkable. No consolidation. No masses. Pleural spaces: Unremarkable. No pneumothorax. No pleural effusion. Heart: There is no flattening of the interventricular septum, paradoxical interventricular septum bowing, or right ventricular enlargement to suggest right ventricular strain. Mediastinal space: There is circumferential thickening of the distal esophagus which may be due to esophagitis or gastroesophageal reflux. Pulmonary arteries: No evidence of pulmonary emboli. Aorta: Unremarkable. No aortic aneurysm. Lymph nodes: Unremarkable. No enlarged lymph nodes. Liver: Ill-defined hypoattenuating mass within the lateral segment of the left hepatic lobe measuring 5.7 x 3.7 cm. 1.1 cm hypoattenuating lesion within the medial segment of the left hepatic lobe. Ill-defined hypoattenuating area within the posterior right hepatic lobe. Nodular contour to the liver. Bones/joints: Unremarkable. No acute fracture. Soft tissues: Unremarkable. IMPRESSION: 1. No evidence of pulmonary emboli. 2. Ill-defined hypoattenuating mass within the lateral segment of the left hepatic lobe measuring 5.7 x 3.7 cm. 3. Multiple additional space-occupying lesions within the liver worrisome for hepatic metastatic disease. COMMENTS: Consistent with the [employer] [place] [employer]'s Incidental Findings Committee white paper (J Am Trent Radiol 2015): In patients aged 35 years and older with an incidental thyroid nodule equal to or greater than 1.[address], MRI or extrathyroidal US, further evaluation with dedicated thyroid US is recommended for patients with normal life expectancy and without comorbidities. For smaller nodules without suspicious features, no further evaluation or follow up is recommended.
[2020-08-30] MEDS: Sodium Chloride 0.9% 1,000 ML IV SCH ×2 (13:51→21:24)
[2020-08-30] MEDS: levETIRAcetam 500 MG Tab PO SCH ×2 (14:23→21:15)
[2020-08-30] MEDS: Acetaminophen/HYDROcodone 325-5 MG Tab PO PRN (16:58)
[2020-08-30] MEDS: Nortriptyline 25 MG Cap PO SCH (21:15)
[2020-08-30] MEDS: Insulin Glarg,Human.Rec.Analog 100 Unit/ML SUBCUT SCH (21:18)
[2020-08-31] MEDS: Acetaminophen/HYDROcodone 325-5 MG Tab PO PRN ×4 (04:37→20:43)
[2020-08-31] MEDS: Sodium Chloride 0.9% 1,000 ML IV SCH ×3 (04:46→22:29)
[2020-08-31] MEDS: Levothyroxine 100 MCG Tab PO SCH (05:57)
[2020-08-31 06:37] LABS: ANION GAP 11.4 mEq/L (7-13)
[2020-08-31] MEDS: Insulin Lispro 100 Units/ML 3 ML Vial SUBCUT SCH ×4 (08:23→21:13)
[2020-08-31] MEDS ORDERED: Levothyroxine 100 MCG Tab PO SCH (09:00)
[2020-08-31] MEDS: levETIRAcetam 500 MG Tab PO SCH ×2 (09:04→20:45)
[2020-08-31] MEDS: Aspirin 81 MG Tab.Chew PO SCH (09:04)
[2020-08-31] MEDS: DULoxetine 30 MG Cap PO SCH (09:04)
[2020-08-31] MEDS ORDERED: Iopamidol 612 MG/ML 100 ML Bottle IVPUSH ONE (11:34)
[2020-08-31] MEDS: Barium Sulfate w/v 2.1% Oral Susp 450 ML Bottle PO SCH ×2 (11:55→12:56)
--- NOTE | 2020-08-31 14:49 | CT ---
EXAMINATION: Abdomen Pelvis w wo Cont SEX: Female AGE: 75 years CLINICAL HISTORY: 75-year-old hypertensive 244 pound diabetic female with suspicious appearance liver on yesterday's chest CT and, on previous CT abdomen 28 February 2020 at this institution. Previous appendectomy/"hysterectomy". Serum ALT 62. Scan technique: Volume acquisition of data from the abdomen and pelvis obtained after oral ingestion 2 bottles Redicat barium and before/during/after (triphasic) intravenous administration 100 cc nonionic Isovue contrast at 4 cc/s via injector while patient was lying supine on the Siemens multislice scanner [place], [place]. All data archived in the PACS system for storage, reformatting axial/sagittal/coronal planes and study. Interpretation: Abnormal. 1. *Large mixed density, low-attenuation vascular mass lesion occupying left lobe of the liver, that measures 5.9 cm W x 5.2 cm AP x 4 cm L diameter; Several smaller, less apparent, low-attenuation lesions scattered right lobe of the liver. 2. Normal gallbladder RUQ. Stomach, spleen, pancreas, adrenal glands unremarkable. Thick-walled distal esophagus. 3. Several renal cortical cysts scattered bilaterally (largest posterior upper mid pole right kidney measures 2.4 cm; *large "cyst", anterior cortex upper pole, left kidney measures 2.0 cm but is hyperdense (hemorrhagic?) and cannot exclude neoplasm. Unenhanced MRI or ultrasound liver/kidneys suggested. Normal appearing urinary bladder. 4. Atheromatous calcifications normal caliber aortoiliac vessels. No aneurysm or dissection. 5. No mesenteric or retroperitoneal lymphadenopathy. Several cysts left ovary. No right ovary or uterus identified. 6. No pelvic or abdominal mass lesion, inflammatory "dirty" peritoneal fat, bowel lesion, mechanical bowel obstruction, ascites or free intraperitoneal air. Lung bases clear. No pleural or pericardial effusions. 7. Chronic lower thoracic and L5-S1 disc disease with reactive arthritic change. No pathologic skeletal lesion. CONCLUSION: Abnormal liver. Suspicious small upper pole cortical lesion (hemorrhagic cyst? Neoplasm?), Left kidney. Thick-walled distal esophagus. Left ovarian and bilateral renal cysts. No effusions or ascites. No lymphadenopathy. No other CT evidence primary or metastatic malignancy.
--- NOTE | 2020-08-31 16:37 | PCM.PN ---
- General Info Date of Service: 08/31/20 - Patient Data Vitals - Most Recent: Last Vital Signs Temp 97.2 F 08/31/20 08:00 Pulse 117 H 08/31/20 12:00 Resp 21 H 08/31/20 12:00 BP 116/63 08/31/20 12:00 Pulse Ox 91 L 08/31/20 12:00 Orthostatic Blood Pressure [ 116/63 Standing] Orthostatic Blood Pressure [ 126/63 Sitting] Orthostatic Blood Pressure [ 137/61 Supine] Weight - Most Recent: 244 lb 12.8 oz I&O - Last 24 Hours: Intake & Output 08/31/20 08/31/20 08/31/20 06:59 14:59 22:59 Intake Total 1160 1415 Output Total 900 Balance 260 1415 Lab Results Last 24 Hours: Laboratory Results - last 24 hr 08/30/20 08/30/20 08/30/20 Range/Units 16:52 17:31 20:51 WBC (5.0-10.0) 10^3/uL RBC (4.2-5.4) 10^6/uL Hgb (12.0-16.0) g/dL Hct (37.0-47.0) % MCV (80-100) fL MCH (27.0-34.0) pg MCHC (33.0-35.0) g/dL Plt Count (150-450) 10^3/uL Neut % (Auto) (42.2-75.2) % Lymph % (Auto) (20.5-50.1) % [place] % (Auto) (2-8) % Eos % (Auto) (1.0-3.0) % Baso % (Auto) (0.0-1.0) % Sodium (136-145) mmol/L Potassium (3.5-5.1) mmol/L Chloride (98-107) mmol/L Carbon Dioxide (21-32) mmol/L Anion Gap (7-13) mEq/L BUN (7-18) mg/dL Creatinine (0.55-1.02) mg/dL Est Cr Clr Drug Dosing mL/min Estimated GFR (MDRD) Glucose (74-99) mg/dL POC Glucose 125 H 201 H (83-110) mg/dl Calcium (8.5-10.1) mg/dL Phosphorus (2.6-4.7) mg/dL Magnesium (1.8-2.4) mg/dL Total Bilirubin (0.2-1.0) mg/dL Direct Bilirubin (0.0-0.2) mg/dL Indirect Bilirubin AST (15-37) U/L ALT (14-59) U/L Alkaline Phosphatase (46-116) U/L Total Protein (6.4-8.2) g/dL Albumin (3.4-5.0) g/dL Globulin Albumin/Globulin Ratio Urine Color Yellow (YELLOW) Urine Appearance Clear (CLEAR) Urine pH 5.0 (5.0-9.0) Ur Specific [place] 1.010 (1.005-1.030) Urine Protein Negative (NEGATIVE) Urine Glucose (UA) Negative (NEGATIVE) Urine Ketones Negative (NEGATIVE) Urine Occult Blood Negative (NEGATIVE) Urine Nitrite Negative (NEGATIVE) Urine Bilirubin Negative (NEGATIVE) Urine Urobilinogen 1.0 (0.2-1.0) mg/dL Ur Leukocyte Esterase Negative (NEGATIVE) 08/31/20 08/31/20 08/31/20 Range/Units 05:55 05:55 07:59 WBC 7.6 (5.0-10.0) 10^3/uL RBC 3.80 L (4.2-5.4) 10^6/uL Hgb 13.4 D (12.0-16.0) g/dL Hct 40.5 (37.0-47.0) % MCV 106.6 H D (80-100) fL MCH 35.3 H (27.0-34.0) pg MCHC 33.1 (33.0-35.0) g/dL Plt Count 209 (150-450) 10^3/uL Neut % (Auto) 54.7 (42.2-75.2) % Lymph % (Auto) 26.4 (20.5-50.1) % [place] % (Auto) 16.0 H (2-8) % Eos % (Auto) 2.6 (1.0-3.0) % Baso % (Auto) 0.3 (0.0-1.0) % Sodium 144 (136-145) mmol/L Potassium 4.4 (3.5-5.1) mmol/L Chloride 107 (98-107) mmol/L Carbon Dioxide 30 (21-32) mmol/L Anion Gap 11.4 (7-13) mEq/L BUN 11 (7-18) mg/dL Creatinine 0.96 (0.55-1.02) mg/dL Est Cr Clr Drug Dosing 49.81 mL/min Estimated GFR (MDRD) 57 Glucose 134 H (74-99) mg/dL POC Glucose 142 H (83-110) mg/dl Calcium 8.3 L (8.5-10.1) mg/dL Phosphorus 3.7 (2.6-4.7) mg/dL Magnesium 1.8 (1.8-2.4) mg/dL Total Bilirubin 0.5 (0.2-1.0) mg/dL Direct Bilirubin 0.2 (0.0-0.2) mg/dL Indirect Bilirubin 0.3 AST 37 (15-37) U/L ALT 62 H (14-59) U/L Alkaline Phosphatase 62 (46-116) U/L Total Protein 6.2 L (6.4-8.2) g/dL Albumin 2.7 L (3.4-5.0) g/dL Globulin 3.5 Albumin/Globulin Ratio 0.77 Urine Color (YELLOW) Urine Appearance (CLEAR) Urine pH (5.0-9.0) Ur Specific [place] (1.005-1.030) Urine Protein (NEGATIVE) Urine Glucose (UA) (NEGATIVE) Urine Ketones (NEGATIVE) Urine Occult Blood (NEGATIVE) Urine Nitrite (NEGATIVE) Urine Bilirubin (NEGATIVE) Urine Urobilinogen (0.2-1.0) mg/dL Ur Leukocyte Esterase (NEGATIVE) 08/31/20 Range/Units 11:20 WBC (5.0-10.0) 10^3/uL RBC (4.2-5.4) 10^6/uL Hgb (12.0-16.0) g/dL Hct (37.0-47.0) % MCV (80-100) fL MCH (27.0-34.0) pg MCHC (33.0-35.0) g/dL Plt Count (150-450) 10^3/uL Neut % (Auto) (42.2-75.2) % Lymph % (Auto) (20.5-50.1) % [place] % (Auto) (2-8) % Eos % (Auto) (1.0-3.0) % Baso % (Auto) (0.0-1.0) % Sodium (136-145) mmol/L Potassium (3.5-5.1) mmol/L Chloride (98-107) mmol/L Carbon Dioxide (21-32) mmol/L Anion Gap (7-13) mEq/L BUN (7-18) mg/dL Creatinine (0.55-1.02) mg/dL Est Cr Clr Drug Dosing mL/min Estimated GFR (MDRD) Glucose (74-99) mg/dL POC Glucose 156 H (83-110) mg/dl Calcium (8.5-10.1) mg/dL Phosphorus (2.6-4.7) mg/dL Magnesium (1.8-2.4) mg/dL Total Bilirubin (0.2-1.0) mg/dL Direct Bilirubin (0.0-0.2) mg/dL Indirect Bilirubin AST (15-37) U/L ALT (14-59) U/L Alkaline Phosphatase (46-116) U/L Total Protein (6.4-8.2) g/dL Albumin (3.4-5.0) g/dL Globulin Albumin/Globulin Ratio Urine Color (YELLOW) Urine Appearance (CLEAR) Urine pH (5.0-9.0) Ur Specific [place] (1.005-1.030) Urine Protein (NEGATIVE) Urine Glucose (UA) (NEGATIVE) Urine Ketones (NEGATIVE) Urine Occult Blood (NEGATIVE) Urine Nitrite (NEGATIVE) Urine Bilirubin (NEGATIVE) Urine Urobilinogen (0.2-1.0) mg/dL Ur Leukocyte Esterase (NEGATIVE) Med Orders - Current: Current Medications Acetaminophen (Acetaminophen 325 Mg Tab) 650 mg PO Q4H PRN PRN Reason: Pain (Mild 1-3)/fever Last Admin: 08/30/20 23:41 Dose: 650 mg Documented by: Hydrocodone Bitart/Acetaminophen (Acetaminophen/Hydrocodone 325-5 Mg Tab) 1 tab PO Q3H PRN PRN Reason: Pain (moderate 4-6) Last Admin: 08/31/20 14:28 Dose: 1 tab Documented by: Aspirin (Aspirin 81 Mg Tab.Chew) 81 mg PO DAILY [facility] Last Admin: 08/31/20 09:04 Dose: 81 mg Documented by: Dextrose/Water (50% Dextrose In Water 50 Ml Syringe) 50 ml IV ASDIRECTED PRN PRN Reason: Hypoglycemia Duloxetine HCl (Duloxetine 30 Mg Cap) 60 mg PO DAILY [facility] Last Admin: 08/31/20 09:04 Dose: 60 mg Documented by: Glucagon (Glucagon,Human Recombinant 1 Mg Vial) 1 mg IM ASDIRECTED PRN PRN Reason: Hypoglycemia Lactated Ringer's (Ringers, Lactated) 1,000 mls @ 500 mls/hr IV ASDIRECTED [facility] Last Admin: 08/30/20 08:13 Dose: 500 mls/hr Documented by: Sodium Chloride (Normal Saline) 1,000 mls @ 125 mls/hr IV ASDIRECTED [facility] Last Admin: 08/31/20 13:19 Dose: 125 mls/hr Documented by: Insulin Glargine (Insulin Glarg,Human.Rec.Analog 100 Unit/Ml) 48 unit SUBCUT BEDTIME [facility] Last Admin: 08/30/20 21:18 Dose: 48 units Documented by: Insulin Human Lispro (Insulin Lispro 100 Units/Ml 3 Ml Vial) 0 unit SUBCUT WITHMEALSANDBED [facility]; Protocol Last Admin: 08/31/20 11:49 Dose: Not Given Documented by: Levetiracetam (Levetiracetam 500 Mg Tab) 500 mg PO BID [facility] Last Admin: 08/31/20 09:04 Dose: 500 mg Documented by: Levothyroxine Sodium (Levothyroxine 100 Mcg Tab) 100 mcg PO DAILY@0600 [facility] Last Admin: 08/31/20 05:57 Dose: 100 mcg Documented by: Nortriptyline HCl (Nortriptyline 25 Mg Cap) 25 mg PO BEDTIME [facility] Last Admin: 08/30/20 21:15 Dose: 25 mg Documented by: Discontinued Medications Hydrocodone Bitart/Acetaminophen (Acetaminophen/Hydrocodone 325-5 Mg Tab) 1 tab PO TID PRN PRN Reason: Pain Last Admin: 08/31/20 04:37 Dose: 1 tab Documented by: Barium Sulfate (Barium Sulfate W/V 2.1% Oral Susp 450 Ml Bottle) 450 ml PO Q1H [facility] Stop: 08/31/20 12:46 Last Admin: 08/31/20 12:56 Dose: 450 ml Documented by: Diphtheria/Tetanus/Acell Pertussis (Diphtheria,Pertussis(Acell),Tetanus Vaccine 0.5 Ml Syringe) 0.5 ml IM .ONCE ONE Stop: 08/30/20 09:20 Last Admin: 08/30/20 09:24 Dose: 0.5 ml Documented by: Hydromorphone HCl (Hydromorphone 1 Mg/Ml Syringe) 1 mg IVPUSH ONETIME ONE Stop: 08/30/20 08:43 Last Admin: 08/30/20 08:51 Dose: 1 mg Documented by: Iopamidol (Iopamidol 755 Mg/Ml 100 Ml Bottle) 100 ml IVPUSH ONETIME ONE Stop: 08/30/20 11:31 Last Admin: 08/30/20 14:35 Dose: 75 ml Documented by: Iopamidol (Iopamidol 612 Mg/Ml 100 Ml Bottle) 100 ml IVPUSH ONETIME ONE Stop: 08/31/20 11:35 Last Admin: 08/31/20 13:54 Dose: 100 ml Documented by: Levothyroxine Sodium (Levothyroxine 100 Mcg Tab) 100 mcg PO DAILY [facility] - Exam Quality Assessment: Supplemental Oxygen (1L) General: Alert, Oriented, Cooperative HEENT: Pupils Equal, Pupils Reactive Neck: Supple Lungs: Clear to Auscultation, Normal Respiratory Effort Cardiovascular: Regular Rate, Regular Rhythm, No Murmurs GI/Abdominal Exam: Normal Bowel Sounds, Soft, Non-Tender, No Distention Back Exam: Normal Inspection Extremities: No Pedal Edema Skin: Warm, Dry Neurological: No New Focal Deficit Psy/Mental Status: Alert, Normal Affect, Normal Mood - Patient Data Lab Results Last 24 hrs: Laboratory Results - last 24 hr 08/30/20 08/30/20 08/30/20 Range/Units 16:52 17:31 20:51 WBC (5.0-10.0) 10^3/uL RBC (4.2-5.4) 10^6/uL Hgb (12.0-16.0) g/dL Hct (37.0-47.0) % MCV (80-100) fL MCH (27.0-34.0) pg MCHC (33.0-35.0) g/dL Plt Count (150-450) 10^3/uL Neut % (Auto) (42.2-75.2) % Lymph % (Auto) (20.5-50.1) % [place] % (Auto) (2-8) % Eos % (Auto) (1.0-3.0) % Baso % (Auto) (0.0-1.0) % Sodium (136-145) mmol/L Potassium (3.5-5.1) mmol/L Chloride (98-107) mmol/L Carbon Dioxide (21-32) mmol/L Anion Gap (7-13) mEq/L BUN (7-18) mg/dL Creatinine (0.55-1.02) mg/dL Est Cr Clr Drug Dosing mL/min Estimated GFR (MDRD) Glucose (74-99) mg/dL POC Glucose 125 H 201 H (83-110) mg/dl Calcium (8.5-10.1) mg/dL Phosphorus (2.6-4.7) mg/dL Magnesium (1.8-2.4) mg/dL Total Bilirubin (0.2-1.0) mg/dL Direct Bilirubin (0.0-0.2) mg/dL Indirect Bilirubin AST (15-37) U/L ALT (14-59) U/L Alkaline Phosphatase (46-116) U/L Total Protein (6.4-8.2) g/dL Albumin (3.4-5.0) g/dL Globulin Albumin/Globulin Ratio Urine Color Yellow (YELLOW) Urine Appearance Clear (CLEAR) Urine pH 5.0 (5.0-9.0) Ur Specific [place] 1.010 (1.005-1.030) Urine Protein Negative (NEGATIVE) Urine Glucose (UA) Negative (NEGATIVE) Urine Ketones Negative (NEGATIVE) Urine Occult Blood Negative (NEGATIVE) Urine Nitrite Negative (NEGATIVE) Urine Bilirubin Negative (NEGATIVE) Urine Urobilinogen 1.0 (0.2-1.0) mg/dL Ur Leukocyte Esterase Negative (NEGATIVE) 08/31/20 08/31/20 08/31/20 Range/Units 05:55 05:55 07:59 WBC 7.6 (5.0-10.0) 10^3/uL RBC 3.80 L (4.2-5.4) 10^6/uL Hgb 13.4 D (12.0-16.0) g/dL Hct 40.5 (37.0-47.0) % MCV 106.6 H D (80-100) fL MCH 35.3 H (27.0-34.0) pg MCHC 33.1 (33.0-35.0) g/dL Plt Count 209 (150-450) 10^3/uL Neut % (Auto) 54.7 (42.2-75.2) % Lymph % (Auto) 26.4 (20.5-50.1) % [place] % (Auto) 16.0 H (2-8) % Eos % (Auto) 2.6 (1.0-3.0) % Baso % (Auto) 0.3 (0.0-1.0) % Sodium 144 (136-145) mmol/L Potassium 4.4 (3.5-5.1) mmol/L Chloride 107 (98-107) mmol/L Carbon Dioxide 30 (21-32) mmol/L Anion Gap 11.4 (7-13) mEq/L BUN 11 (7-18) mg/dL Creatinine 0.96 (0.55-1.02) mg/dL Est Cr Clr Drug Dosing 49.81 mL/min Estimated GFR (MDRD) 57 Glucose 134 H (74-99) mg/dL POC Glucose 142 H (83-110) mg/dl Calcium 8.3 L (8.5-10.1) mg/dL Phosphorus 3.7 (2.6-4.7) mg/dL Magnesium 1.8 (1.8-2.4) mg/dL Total Bilirubin 0.5 (0.2-1.0) mg/dL Direct Bilirubin 0.2 (0.0-0.2) mg/dL Indirect Bilirubin 0.3 AST 37 (15-37) U/L ALT 62 H (14-59) U/L Alkaline Phosphatase 62 (46-116) U/L Total Protein 6.2 L (6.4-8.2) g/dL Albumin 2.7 L (3.4-5.0) g/dL Globulin 3.5 Albumin/Globulin Ratio 0.77 Urine Color (YELLOW) Urine Appearance (CLEAR) Urine pH (5.0-9.0) Ur Specific [place] (1.005-1.030) Urine Protein (NEGATIVE) Urine Glucose (UA) (NEGATIVE) Urine Ketones (NEGATIVE) Urine Occult Blood (NEGATIVE) Urine Nitrite (NEGATIVE) Urine Bilirubin (NEGATIVE) Urine Urobilinogen (0.2-1.0) mg/dL Ur Leukocyte Esterase (NEGATIVE) 08/31/20 Range/Units 11:20 WBC (5.0-10.0) 10^3/uL RBC (4.2-5.4) 10^6/uL Hgb (12.0-16.0) g/dL Hct (37.0-47.0) % MCV (80-100) fL MCH (27.0-34.0) pg MCHC (33.0-35.0) g/dL Plt Count (150-450) 10^3/uL Neut % (Auto) (42.2-75.2) % Lymph % (Auto) (20.5-50.1) % [place] % (Auto) (2-8) % Eos % (Auto) (1.0-3.0) % Baso % (Auto) (0.0-1.0) % Sodium (136-145) mmol/L Potassium (3.5-5.1) mmol/L Chloride (98-107) mmol/L Carbon Dioxide (21-32) mmol/L Anion Gap (7-13) mEq/L BUN (7-18) mg/dL Creatinine (0.55-1.02) mg/dL Est Cr Clr Drug Dosing mL/min Estimated GFR (MDRD) Glucose (74-99) mg/dL POC Glucose 156 H (83-110) mg/dl Calcium (8.5-10.1) mg/dL Phosphorus (2.6-4.7) mg/dL Magnesium (1.8-2.4) mg/dL Total Bilirubin (0.2-1.0) mg/dL Direct Bilirubin (0.0-0.2) mg/dL Indirect Bilirubin AST (15-37) U/L ALT (14-59) U/L Alkaline Phosphatase (46-116) U/L Total Protein (6.4-8.2) g/dL Albumin (3.4-5.0) g/dL Globulin Albumin/Globulin Ratio Urine Color (YELLOW) Urine Appearance (CLEAR) Urine pH (5.0-9.0) Ur Specific [place] (1.005-1.030) Urine Protein (NEGATIVE) Urine Glucose (UA) (NEGATIVE) Urine Ketones (NEGATIVE) Urine Occult Blood (NEGATIVE) Urine Nitrite (NEGATIVE) Urine Bilirubin (NEGATIVE) Urine Urobilinogen (0.2-1.0) mg/dL Ur Leukocyte Esterase (NEGATIVE) Result Diagrams: 08/31/20 05:55 08/31/20 05:55 Sepsis Event Note - Evaluation Sepsis Screening Result: No Definite Risk - Focused Exam Vital Signs: Vital Signs Temp Pulse Pulse Resp BP Pulse Ox Pulse Ox 08/31/20 12:00 117 H 21 H 116/63 91 L 08/31/20 11:09 92 L 08/31/20 08:00 97.2 F 93 20 160/50 H 96 08/31/20 06:00 20 89 L 08/31/20 04:41 97.3 F 90 20 145/60 H 93 L - Problem List Review Problem List Initiated/Reviewed/Updated: No - My Orders Last 24 Hours: My Active Orders 08/30/20 20:00 Communication Order [RC] 08/30/20 21:00 Insulin Glarg,Human.Rec.Analog [LantUS] 48 unit SUBCUT BEDTIME Nortriptyline 25 mg PO BEDTIME 08/31/20 06:00 Levothyroxine [Synthroid] 100 mcg PO DAILY@0600 08/31/20 09:00 Aspirin 81 mg PO DAILY DULoxetine [Cymbalta] 60 mg PO DAILY 08/31/20 09:18 Acetaminophen/HYDROcodone [[place] 325-5 MG] 1 tab PO Q3H PRN 08/31/20 11:06 Consult to Physical Therapy [PT Evaluation and Treatment] [CONS] Routine 08/31/20 13:58 Echo Comp wo Cont [US] Urgent 09/01/20 08:00 Pelvis Non OB Ltd [US] Routine Retroperitoneal Ltd [US] Routine - Plan Plan:: #liver masses - large mass ~6 cm and at least two smaller masses in different lobes - suggestive of metastasis - pt is up to date on mammograms but never had a c-scope - primary unknown but suspected etiologies included thickened esophagus, left kidney cyst, hx left adnexal cyst - today for CT a/p w/ oral and IV contrast and RP sono tomorrow am - further work up will likely be outpatient w/ CM scheduling GI, oncology appointments and IR liver biopsy at [facility]- will send out tumor markers - PCP Dr Gutierrez was updated #syncope 2/2 orthostatic hypotension - pt describes at least a month long hx of orthostasis - denies medication changes but perhaps feeling 'dry' - now improved and no longer hypotensive but still dizzy on ambulation #acute hypoxic respiratory failure - COVID neg - CTA neg - now stable sats low 90s on room air including w/ ambulation - desats in ED possibly related to OHS/VALERIE #DM - hold oral hypoglycemics - GLENROY #HT - hold BP meds #seizure d/o / gout / hypothyroidism / fibromyalgia / s/p right ankle surgery - c/w home meds PPX - hold chemoppx given scalp bleeding and head trauma Full code Silvano [phone] updated at bedside
[2020-08-31] MEDS: Nortriptyline 25 MG Cap PO SCH (20:44)
[2020-08-31] MEDS: Insulin Glarg,Human.Rec.Analog 100 Unit/ML SUBCUT SCH (21:15)
[2020-09-01] MEDS ORDERED: Simethicone 80 MG Tab.Chew PO ONE (05:26)
[2020-09-01] MEDS: Levothyroxine 100 MCG Tab PO SCH (05:58)
[2020-09-01] MEDS: Sodium Chloride 0.9% 1,000 ML IV SCH (06:36)
[2020-09-01] MEDS: Aspirin 81 MG Tab.Chew PO SCH (08:00)
[2020-09-01] MEDS: DULoxetine 30 MG Cap PO SCH (08:00)
[2020-09-01] MEDS: levETIRAcetam 500 MG Tab PO SCH (08:00)
[2020-09-01] MEDS: Insulin Lispro 100 Units/ML 3 ML Vial SUBCUT SCH ×2 (08:00→12:40)
[2020-09-01] MEDS: Acetaminophen/HYDROcodone 325-5 MG Tab PO PRN ×2 (09:06→15:47)
[2020-09-01 13:14] VITALS: BP 140/49; PULSE 85
--- NOTE | 2020-09-01 15:51 | US ---
EXAMINATION: Retroperitoneal Ltd SEX: Female AGE: 75 years CLINICAL HISTORY: 75-year-old hypertensive obese diabetic female patient with presumed hepatic metastasis (etiology unknown). Patient has had hysterectomy and right oophorectomy. Appendectomy. Several typically benign appearing renal cysts. "Suspicious 2 cm diameter round hyperdense cortical lesion mid pole left kidney". Hemorrhagic cyst? Neoplasm? Interpretation: 1. Rounded cortical mass upper upper mid pole left kidney anteriorly does not have typical through transmission or well-defined back border characteristic of benign cyst but no abnormal enhancement vascular flow. Probable hemorrhagic cyst. 2. Normal reniform size, axis and configuration both kidneys. 3. Characteristic benign-appearing cortical cysts contralateral right kidney. 4. No sign of urolithiasis or obstructive uropathy. CONCLUSION: Probable hemorrhagic cyst upper mid pole left kidney. Several benign cortical cysts right kidney.
--- NOTE | 2020-09-01 15:58 | PCM.DCSUM1 ---
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 Pt states she was readying to go out to walk her dog when she became lightheaded fell down and hit her head on piece of furniture. She has no recollection of moment of falling. arrived momentarily and found her on the floor, awake, fully alert and aware of her surroundings, w/ blood on the floor but the scalp had stopped bleeding. There is no mention of fecal or urinary incontinence. In the ER the pt required 21 gary placed on her occipital scalp. She was noted orthostatic w/ SBP dropping to low 80s. Additionally the pt was noted to have room air o2 sats 91-92% but occasionally desaturate to low 80s as well. Pt received IV hydration and her metoprolol was held w/ resolution of orthostasis. Pt sats remained stable in low 90s even w/ ambulation. This may possibly be due to obesity hypoventilation. Pt does remain somewhat lightheaded. While the above symptoms were worked up w/ CT chest a large 6 cm liver mass was found. There are at least two other smaller liver masses. Dedicated abdominal CT w/ IV and PO contrast revealed a left renal cyst and left adnexal cysts. There is also note of a thickened esophagus. Tumor markers were sent and are still pending at this time. Pt was arranged for an IR guided biopsy of the liver mass at [facility]. She was also arranged for an oncology appointment shortly after the biopsy. 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 Pt and were both fully updated on all of the above findings and plans. Attestation: Pt requires a rolling walker for safety of ambulation. - Discharge Data Discharge Date: 09/01/20 Discharge Disposition: Home, W Home Health Agency 06 Condition: Good - Referral to Home Health Date of Face to Face Encounter: 09/01/20 Reason for Homebound Status: medically frail due to orthostatic hypotension and suspected metastatic cancer Primary Care Physician: PCP None Skilled Need: VS monitoring, PT/OT for strenghtening and conditioning - Patient Summary/Data Consults: Consultations 08/30/20 11:09 PT Evaluation and Treatment [CONS] Routine 08/31/20 11:06 Consult to Physical Therapy [PT Evaluation and Treatment] [CONS] Routine - Discharge Plan *PRESCRIPTION DRUG MONITORING PROGRAM REVIEWED*: Not Applicable *COPY OF PRESCRIPTION DRUG MONITORING REPORT IN PATIENT YEISON: Not Applicable Home Medications: Home Meds DULoxetine [Cymbalta] 60 mg PO DAILY 07/27/15 [History] Hydrocodone/Acetaminophen [Hydrocodone-Acetaminophen 5-325] 1 tab PO TID PRN 07/27/15 [History] Nortriptyline HCl 25 mg PO BEDTIME 07/27/15 [History] levETIRAcetam [Levetiracetam] 500 mg PO BID 07/27/15 [History] Lutein/Minerals/Vit A,C & E [Ocuvite] 1 tab PO BID 12/03/16 [History] Nitroglycerin [Nitrostat] 0.4 mg SL .Q5MIN 12/19/16 [History] Levothyroxine [Synthroid] 100 mcg PO DAILY 04/16/18 [History] glipiZIDE [Glucotrol] 10 mg PO BIDAC 04/16/18 [History] Acetaminophen [Tylenol] 650 mg PO Q4H PRN tablet 04/18/18 [Rx] Insulin Glarg,Human.Rec.Analog [Lantus] 48 units SQ BEDTIME 02/28/20 [History] Aspirin 81 mg PO DAILY 08/30/20 [History] Diclofenac Sodium 1 gm TOP BID PRN 08/30/20 [History] Semaglutide [Ozempic] 1 mg SQ WEEKLY 08/30/20 [History] Patient Handouts: Near-Syncope, [id number], Syncope, [id number] - Discharge Summary/Plan Comment DC Time >30 min.: Yes (40 min) - Patient Data Vitals - Most Recent: Last Vital Signs Temp 97.8 F 09/01/20 13:13 Pulse 85 09/01/20 13:13 Resp 18 09/01/20 13:13 BP 140/49 L 09/01/20 13:13 Pulse Ox 93 L 09/01/20 13:13 Orthostatic Blood Pressure [ 116/63 Standing] Orthostatic Blood Pressure [ 126/63 Sitting] Orthostatic Blood Pressure [ 137/61 Supine] Weight - Most Recent: 244 lb 12.8 oz I&O - Last 24 hours: Intake & Output 09/01/20 09/01/20 09/01/20 06:59 14:59 22:59 Intake Total 995 690 Output Total 1000 Balance -5 690 Lab Results - Last 24 hrs: Laboratory Results - last 24 hr 08/31/20 08/31/20 09/01/20 Range/Units 16:47 20:56 07:56 POC Glucose 191 H 180 H 139 H (83-110) mg/dl 09/01/20 Range/Units 11:46 POC Glucose 204 H (83-110) mg/dl Med Orders - Current: Current Medications Acetaminophen (Acetaminophen 325 Mg Tab) 650 mg PO Q4H PRN PRN Reason: Pain (Mild 1-3)/fever Last Admin: 08/30/20 23:41 Dose: 650 mg Documented by: Hydrocodone Bitart/Acetaminophen (Acetaminophen/Hydrocodone 325-5 Mg Tab) 1 tab PO Q3H PRN PRN Reason: Pain (moderate 4-6) Last Admin: 09/01/20 15:47 Dose: 1 tab Documented by: Aspirin (Aspirin 81 Mg Tab.Chew) 81 mg PO DAILY [facility] Last Admin: 09/01/20 08:00 Dose: 81 mg Documented by: Dextrose/Water (50% Dextrose In Water 50 Ml Syringe) 50 ml IV ASDIRECTED PRN PRN Reason: Hypoglycemia Duloxetine HCl (Duloxetine 30 Mg Cap) 60 mg PO DAILY [facility] Last Admin: 09/01/20 08:00 Dose: 60 mg Documented by: Glucagon (Glucagon,Human Recombinant 1 Mg Vial) 1 mg IM ASDIRECTED PRN PRN Reason: Hypoglycemia Sodium Chloride (Normal Saline) 1,000 mls @ 125 mls/hr IV ASDIRECTED [facility] Last Infusion: 09/01/20 12:40 Dose: 125 mls/hr Documented by: Insulin Glargine (Insulin Glarg,Human.Rec.Analog 100 Unit/Ml) 48 unit SUBCUT BEDTIME [facility] Last Admin: 08/31/20 21:15 Dose: 48 units Documented by: Insulin Human Lispro (Insulin Lispro 100 Units/Ml 3 Ml Vial) 0 unit SUBCUT WITHMEALSANDBED [facility]; Protocol Last Admin: 09/01/20 12:40 Dose: 4 units Documented by: Levetiracetam (Levetiracetam 500 Mg Tab) 500 mg PO BID [facility] Last Admin: 09/01/20 08:00 Dose: 500 mg Documented by: Levothyroxine Sodium (Levothyroxine 100 Mcg Tab) 100 mcg PO DAILY@0600 [facility] Last Admin: 09/01/20 05:58 Dose: 100 mcg Documented by: Nortriptyline HCl (Nortriptyline 25 Mg Cap) 25 mg PO BEDTIME [facility] Last Admin: 08/31/20 20:44 Dose: 25 mg Documented by: Discontinued Medications Hydrocodone Bitart/Acetaminophen (Acetaminophen/Hydrocodone 325-5 Mg Tab) 1 tab PO TID PRN PRN Reason: Pain Last Admin: 08/31/20 04:37 Dose: 1 tab Documented by: Barium Sulfate (Barium Sulfate W/V 2.1% Oral Susp 450 Ml Bottle) 450 ml PO Q1H [facility] Stop: 08/31/20 12:46 Last Admin: 08/31/20 12:56 Dose: 450 ml Documented by: Diphtheria/Tetanus/Acell Pertussis (Diphtheria,Pertussis(Acell),Tetanus Vaccine 0.5 Ml Syringe) 0.5 ml IM .ONCE ONE Stop: 08/30/20 09:20 Last Admin: 08/30/20 09:24 Dose: 0.5 ml Documented by: Hydromorphone HCl (Hydromorphone 1 Mg/Ml Syringe) 1 mg IVPUSH ONETIME ONE Stop: 08/30/20 08:43 Last Admin: 08/30/20 08:51 Dose: 1 mg Documented by: Lactated Ringer's (Ringers, Lactated) 1,000 mls @ 500 mls/hr IV ASDIRECTED [facility] Last Admin: 08/30/20 08:13 Dose: 500 mls/hr Documented by: Iopamidol (Iopamidol 755 Mg/Ml 100 Ml Bottle) 100 ml IVPUSH ONETIME ONE Stop: 08/30/20 11:31 Last Admin: 08/30/20 14:35 Dose: 75 ml Documented by: Iopamidol (Iopamidol 612 Mg/Ml 100 Ml Bottle) 100 ml IVPUSH ONETIME ONE Stop: 08/31/20 11:35 Last Admin: 08/31/20 13:54 Dose: 100 ml Documented by: Levothyroxine Sodium (Levothyroxine 100 Mcg Tab) 100 mcg PO DAILY [facility] *Q Meaningful Use (DIS) - VTE *Q VTE Pharmacological Contraindications *Q: Risk of Bleeding VTE Anticoagulation Contraindications: Medical/Procedure Contrai
--- NOTE | 2020-09-01 16:59 | US ---
EXAMINATION: Pelvis Non OB Ltd SEX: Female AGE: 75 years CLINICAL HISTORY: 75-year-old female with suspicious lesions of the liver. Scanning to determine site of origin or etiology probable metastases. "Cystic lesions kidneys/left ovary" reported on CT scans February 2020 and August 2020. Interpretation: Technically difficult ultrasound exam obese female who has had uterus and right ovary surgically removed. Extensive artifact in the pelvis associated with bowel gas and technologist "unable to visualize" left ovary or pelvic cysts. Symmetrically distended normal appearing fluid-filled urinary bladder. No ascites. Note: "Left ovarian cysts" reported CT 31 August 2020 appear relatively unchanged since CT scan 28 February 2020 and relatively benign without associated malignant ascites.
== END 2020-09-01 17:30 | disposition home health service (06) | DRG 189 ==
LOC: DL.ED 06:37 → DL.MS 10:21 → DL.ED 10:30
PROVIDERS: ADMIT Internal Medicine; ATTEND Internal Medicine
DX: J96.01 Acute respiratory failure with hypoxia (principal); E66.2 Morbid (severe) obesity with alveolar hypoventilation; C56.9 Malignant neoplasm of unspecified ovary; C78.7 Secondary malignant neoplasm of liver and intrahepatic bile duct; I95.1 Orthostatic hypotension; E11.8 Type 2 diabetes mellitus with unspecified complications; W01.190A Fall on same level from slipping, tripping and stumbling with subsequent striking against furniture, initial encounter; E66.9 Obesity, unspecified; S01.01XA Laceration without foreign body of scalp, initial encounter; E78.5 Hyperlipidemia, unspecified; W19.XXXA Unspecified fall, initial encounter; H54.7 Unspecified visual loss; H91.92 Unspecified hearing loss, left ear; H35.30 Unspecified macular degeneration; E78.00 Pure hypercholesterolemia, unspecified; I25.2 Old myocardial infarction; R16.0 Hepatomegaly, not elsewhere classified; I10 Essential (primary) hypertension; M54.9 Dorsalgia, unspecified; R40.0 Somnolence; G89.29 Other chronic pain; M10.9 Gout, unspecified; M19.90 Unspecified osteoarthritis, unspecified site; Z98.49 Cataract extraction status, unspecified eye; Z90.89 Acquired absence of other organs; Z68.38 Body mass index [BMI] 38.0-38.9, adult; Z90.710 Acquired absence of both cervix and uterus; Y92.009 Unspecified place in unspecified non-institutional (private) residence as the place of occurrence of the external cause; Z98.890 Other specified postprocedural states; M79.7 Fibromyalgia; E11.42 Type 2 diabetes mellitus with diabetic polyneuropathy; G40.909 Epilepsy, unspecified, not intractable, without status epilepticus; F32.9 Major depressive disorder, single episode, unspecified; E03.9 Hypothyroidism, unspecified; Z88.5 Allergy status to narcotic agent; Z88.6 Allergy status to analgesic agent; Z88.8 Allergy status to other drugs, medicaments and biological substances; Z79.82 Long term (current) use of aspirin; Z79.890 Hormone replacement therapy; Z79.4 Long term (current) use of insulin; Z79.899 Other long term (current) drug therapy; Z20.822 Contact with and (suspected) exposure to COVID-19
CPT/HCPCS: 0240U; 36415; 70450; 71045; 71260; 72125; 74178; 76775; 76857; 80048; 80053; 80076; 81003; 82105; 82378; 82962; 83735; 83880; 84100; 84484; 85025; 85610; 85730; 86301; 86304; 93005; 93306; 97162; 99222; 99231; 99239; 12004; 90471; 90715; 93010; 96374; 99285; 99285-25; A9270-GY; J1170; J1815-GY; J7030; J7120; Q9967

== ENCOUNTER 2021-12-13 12:52 | Emergency (ER) | payer MEDICARE, BC ==
[2021-12-13 14:23] VITALS: BP 173/81; PULSE 86
[2021-12-13] MEDS ORDERED: Doxycycline Monohydrate 100 MG Cap PO ONE (15:55)
[2021-12-13] MEDS ORDERED: Doxycycline Monohydrate 100 MG Cap ONE (16:06)
== END 2021-12-13 16:13 | disposition home or self-care (01) ==
LOC: DL.ED 12:52
DX: I77.6 Arteritis, unspecified (principal); I10 Essential (primary) hypertension; E78.00 Pure hypercholesterolemia, unspecified; E11.9 Type 2 diabetes mellitus without complications; E03.9 Hypothyroidism, unspecified; E66.9 Obesity, unspecified; Z68.27 Body mass index [BMI] 27.0-27.9, adult; Z79.4 Long term (current) use of insulin; Z79.899 Other long term (current) drug therapy; Z88.8 Allergy status to other drugs, medicaments and biological substances
CPT/HCPCS: 99283; A9270

== ENCOUNTER 2022-01-27 13:17 | Emergency (ER) | payer MEDICARE, BC ==
[2022-01-27] MEDS ORDERED: Sodium Chloride 0.9% 10 ML Syringe FLUSH PRN (13:28)
[2022-01-27] MEDS ORDERED: Sodium Chloride 0.9% 1,000 ML IV ONE (13:29)
[2022-01-27 13:51] VITALS: BP 158/36; PULSE 48
[2022-01-27 14:23] LABS: ANION GAP 9.5 mEq/L (7-13)
== END 2022-01-27 16:00 | disposition home or self-care (01) ==
LOC: DL.ED 13:17
DX: U07.1 COVID-19 (principal); R00.1 Bradycardia, unspecified; E11.9 Type 2 diabetes mellitus without complications; E03.9 Hypothyroidism, unspecified; M19.90 Unspecified osteoarthritis, unspecified site; E78.00 Pure hypercholesterolemia, unspecified; E66.9 Obesity, unspecified; Z68.38 Body mass index [BMI] 38.0-38.9, adult; Z88.5 Allergy status to narcotic agent; Z88.8 Allergy status to other drugs, medicaments and biological substances; Z79.82 Long term (current) use of aspirin; Z79.899 Other long term (current) drug therapy
CPT/HCPCS: 36415; 71045; 80053; 83605; 83735; 83880; 84484; 85025; 86140; 87040; 93005; 93010; 99284; 99285

== ENCOUNTER 2022-02-02 21:49 | Emergency (ER) | payer MEDICARE, BC ==
[2022-02-03 00:20] LABS: ANION GAP 12.5 mEq/L (7-13)
[2022-02-03] MEDS ORDERED: Metoprolol Tartrate 25 MG Tab PO ONE (00:56)
[2022-02-03 02:44] VITALS: BP 167/56; PULSE 45
== END 2022-02-03 04:20 | disposition home or self-care (01) ==
LOC: DL.ED 21:49
DX: I10 Essential (primary) hypertension (principal); E78.00 Pure hypercholesterolemia, unspecified; I25.2 Old myocardial infarction; M10.9 Gout, unspecified; M19.90 Unspecified osteoarthritis, unspecified site; E11.9 Type 2 diabetes mellitus without complications; E03.9 Hypothyroidism, unspecified; E66.9 Obesity, unspecified; Z68.39 Body mass index [BMI] 39.0-39.9, adult; Z86.16 Personal history of COVID-19; Z88.5 Allergy status to narcotic agent; Z79.82 Long term (current) use of aspirin; Z79.4 Long term (current) use of insulin; Z79.899 Other long term (current) drug therapy
CPT/HCPCS: 36415; 71045; 80053; 83605; 84484; 85025; 93005; 99284; A9270; 93010

== ENCOUNTER 2023-05-04 17:44 | Emergency (ER) | payer MEDICARE, BC ==
[2023-05-04] MEDS ORDERED: Sodium Chloride 0.9% 10 ML Syringe FLUSH PRN (18:19)
[2023-05-04 18:21] VITALS: BP 147/86; PULSE 86
[2023-05-04] MEDS ORDERED: Ketorolac 30 MG/ML SDV IVPUSH ONE (18:41)
[2023-05-04 18:42] LABS: BASOPHILS PERCENT AUTO 0.1 % (0.0-1.0); EOSINOPHILS PERCENT AUTO 3.8 % (1.0-3.0); HEMATOCRIT 42.8 % (37.0-47.0); HEMOGLOBIN 15.2 g/dL (12.0-16.0); LYMPHOCYTES PERCENT AUTO 25.4 % (20.5-50.1); MEAN CORPUSCULAR HEMOGLOBIN 35.7 pg (27.0-34.0); MEAN CORPUSCULAR HGB CONC 35.5 g/dL (33.0-35.0); MEAN CORPUSCULAR VOLUME 100.5 fL (80-100); MONOCYTES PERCENT AUTO 13.5 % (2-8); NEUTROPHILS PERCENT AUTO 57.2 % (42.2-75.2); PLATELET COUNT,PLT 212 10^3/uL (150-450); RED BLOOD CELL COUNT 4.26 10^6/uL (4.2-5.4); WHITE BLOOD CELL COUNT,WBC 7.1 10^3/uL (5.0-10.0)
[2023-05-04 18:56] LABS: ALANINE AMINOTRANSFERASE,ALT 48 U/L (14-59); ALBUMIN 3.1 g/dL (3.4-5.0); ALKALINE PHOSPHATASE 64 U/L (46-116); ANION GAP 11.1 mEq/L (7-13); ASPARTATE AMNIOTRANSFERASE,AST 32 U/L (15-37); BILIRUBIN TOTAL 0.5 mg/dL (0.2-1.0); BLOOD UREA NITROGEN,BUN 20 mg/dL (7-18); BUN/CREATININE RATIO 14.1 (No establ ref range); CALCIUM 9.8 mg/dL (8.5-10.1); CARBON DIOXIDE,CO2 31 mmol/L (21-32); CHLORIDE,CL 100 mmol/L (98-107); CREATININE 1.42 mg/dL (0.55-1.02); EST CRCL DRUG DOSING (CG) 33.29 mL/min; GLUCOSE RANDOM 172 mg/dL (70-99); MAGNESIUM 1.7 mg/dL (1.8-2.4); POTASSIUM,K 4.1 mmol/L (3.5-5.1); PROTEIN TOTAL,TP 7.9 g/dL (6.4-8.2); SODIUM,NA 138 mmol/L (136-145)
[2023-05-04 19:01] LABS: LACTIC ACID 2.3 mmol/L (0.4-2.0)
[2023-05-04 19:04] LABS: A/G RATIO 0.65; C-REACTIVE PROTEIN < 0.50 ng/dL (<=0.50); ESTIMATED GFR 39 mL/min (>=60)
[2023-05-04 19:12] LABS: CORONAVIRUS COVID-19 NAA NEGATIVE (NEGATIVE); INFLUENZA A NAA NEGATIVE (NEGATIVE); INFLUENZA B NAA NEGATIVE (NEGATIVE)
[2023-05-04 19:26] LABS: APPEARANCE,URINE SLIGHTLY CLOUDY (CLEAR); BILIRUBIN,URINE NEGATIVE (NEGATIVE); COLOR,URINE YELLOW (YELLOW); GLUCOSE,URINE NEGATIVE (NEGATIVE); KETONES,URINE NEGATIVE (NEGATIVE); LEUKOCYTE ESTERASE,URINE SMALL (NEGATIVE); NITRITE,URINE NEGATIVE (NEGATIVE); OCCULT BLOOD,URINE LARGE (NEGATIVE); PH,URINE 5.5 (5.0-9.0); PROTEIN,URINE NEGATIVE (NEGATIVE); UROBILINOGEN,URINE 0.2 mg/dL (0.2-1.0)
[2023-05-04 19:34] LABS: BACTERIA,URINE FEW /HPF (0-FEW/HPF); EPITHELIAL CELLS,URINE FEW /HPF (NOT SEEN); RBC,URINE 50-75 /HPF (0-5)
[2023-05-04] MEDS ORDERED: Iopamidol 612 MG/ML 100 ML Bottle IVPUSH ONE (19:35)
[2023-05-04] MEDS ORDERED: Ciprofloxacin 500 MG Tab PO ONE (21:51)
== END 2023-05-04 22:05 | disposition home or self-care (01) ==
LOC: DL.ED 17:44
DX: N13.2 Hydronephrosis with renal and ureteral calculous obstruction (principal); B34.9 Viral infection, unspecified; I10 Essential (primary) hypertension; I25.2 Old myocardial infarction; E78.00 Pure hypercholesterolemia, unspecified; E03.9 Hypothyroidism, unspecified; E66.9 Obesity, unspecified; E11.9 Type 2 diabetes mellitus without complications; Z88.5 Allergy status to narcotic agent; Z88.8 Allergy status to other drugs, medicaments and biological substances; Z79.899 Other long term (current) drug therapy; Z79.82 Long term (current) use of aspirin; Z90.49 Acquired absence of other specified parts of digestive tract; Z68.37 Body mass index [BMI] 37.0-37.9, adult; Z20.822 Contact with and (suspected) exposure to COVID-19
CPT/HCPCS: 0240U; 36415; 71270; 74178; 80053; 81001; 83605; 83735; 85025; 86140; 87040; 87086; 96374; 99285; A9270; J1885; Q9967; 99284; J3490